=== PATIENT | female | born 1945 | race Caucasian/White ===

== ENCOUNTER → 2016-05-11 16:56 | Outpatient (CLI) | payer MEDICARE, OTHER ==
[2013-12-26 11:14] VITALS: BMI 47.7
[~2016-05-11 16:56] MED LIST: CALTRATE 600 M600 M1 PO; DYAZIDE 37.5/251 CAP PO; MULTIPLE VITAMI1 TA1 PO; NORVASC5 MG PO; OXYBUTYNIN CHLOR5 MG PO; PROAIR HFA8.5 GM INH; SYMBICORT 80-10.2 GM INH; VITAMIN B COMPL1 TAB PO
== END | disposition home or self-care (01) ==
LOC: D.MAMMO 14:15
DX: Z12.31 Encounter for screening mammogram for malignant neoplasm of breast (principal)

== ENCOUNTER 2016-05-17 18:50 | Emergency (ER) | payer MEDICARE, OTHER ==
[2013-12-26 11:14] VITALS: BMI 47.7
[2016-05-17 22:28] LABS: BASOPHILS 0.6 % (0.0-2.0); EOSINOPHILS 1.7 % (0-7); HEMATOCRIT 43.3 % (36.0-48.0); IMMATURE GRANULOCYTES 0.2 % (0-5); LYMPHOCYTES 30.3 % (15-50); MCH 27.3 pg (26.0-34.0); MCHC 32.3 g/dL (31.0-37.0); MCV 84.6 fL (80.0-100.0); MEAN PLATELET VOLUME 9.6 fL (7.4-10.4); MONOCYTES 6.9 % (2-11); NEUTROPHILS 60.3 % (40-80); PLATELET COUNT 326 10x3/uL (130-400); RBC 5.12 10x6/uL (4.00-5.40); RDW 14.6 % (11.5-14.5)
== END 2016-05-17 22:00 | disposition home or self-care (01) ==
LOC: D.ER 18:50
PROVIDERS: Family Medicine
DX: S16.1XXA Strain of muscle, fascia and tendon at neck level, initial encounter (principal); V49.40XA Driver injured in collision with unspecified motor vehicles in traffic accident, initial encounter; Y93.89 Activity, other specified; Y92.410 Unspecified street and highway as the place of occurrence of the external cause

== ENCOUNTER → 2016-05-31 14:01 | Outpatient (CLI) | payer MEDICARE, OTHER ==
[2013-12-26 11:14] VITALS: BMI 47.7
== END | disposition home or self-care (01) ==
LOC: D.RAD 13:30
DX: M54.2 Cervicalgia (principal)

== ENCOUNTER → 2018-06-01 19:00 | Outpatient (CLI) | payer MEDICARE, OTHER ==
[2013-12-26 11:14] VITALS: BMI 47.7
== END | disposition home or self-care (01) ==
LOC: D.MAMMO 13:30
PROVIDERS: ATTEND Family Medicine Adult Medicine
DX: Z12.31 Encounter for screening mammogram for malignant neoplasm of breast (principal)

== ENCOUNTER → 2018-09-12 09:21 | Outpatient (CLI) | payer MEDICARE, OTHER ==
[2013-12-26 11:14] VITALS: BMI 47.7
== END | disposition home or self-care (01) ==
LOC: D.NM 09:21
PROVIDERS: ATTEND Orthopaedic Surgery
DX: T84.092A Other mechanical complication of internal right knee prosthesis, initial encounter (principal)

== ENCOUNTER → 2018-11-21 16:15 | Outpatient (CLI) | payer MEDICARE, OTHER ==
[2013-12-26 11:14] VITALS: BMI 47.7
[2018-11-21 16:37] LABS: BASOPHILS 0.3 % (0-2); EOSINOPHILS 1.4 % (0-7); HEMATOCRIT 40.3 % (36.0-48.0); HEMOGLOBIN 13.4 g/dL (12-16); IMMATURE GRANULOCYTES 0.3 % (0-5); LYMPHOCYTES 19.5 % (15-50); MCH 27.1 pg (26.0-34.0); MCHC 33.3 g/dL (31.0-37.0); MCV 81.4 fL (80.0-100.0); MEAN PLATELET VOLUME 9.9 fL (7.4-10.4); MONOCYTES 8.9 % (2-11); NEUTROPHILS 69.6 % (40-80); PLATELET COUNT 336 10x3/uL (130-400); RBC 4.95 10x6/uL (4.00-5.40); RDW 16.1 % (11.5-14.5); WBC 14.9 10x3/uL (4.8-10.8)
[2018-11-21 17:56] LABS: ERYTHROCYTE SEDIMENTATION RATE 40 mm/hr (0-30)
== END | disposition home or self-care (01) ==
LOC: D.LABREF 16:15
PROVIDERS: ATTEND Clinical Nurse Specialist Family Health
DX: M25.561 Pain in right knee (principal)

== ENCOUNTER → 2018-11-26 10:29 | Outpatient (CLI) | payer MEDICARE, OTHER ==
[2013-12-26 11:14] VITALS: BMI 47.7
--- NOTE | ~2018-11-26 | HEMODYNAMI ---
PATIENT:LAURIE MORENO MEDICAL RECORD: [id number] : 49 [id number] ADMISSION DATE: 11/26/18 Generatedon:11/26/201811:22 Patient name: LAURIE MORENO Patient #: [id number] SSN: : 1945 Date of study: 11/26/2018 Page: Of Hemodynamic Procedure Report Patient Data Patient Demographics Procedure consent was obtained First Name: LAURIE Gender: Female Last Name: TIFFANIE : 1945 Middle Initial: E Age: 73 year(s) Patient #: [id number] Race: Unknown Additional ID: [id number] Contact details Address: [address] [place] [address] [place] [place] [facility] Zip code: [address] Past Medical History Allergies Allergen Reaction Date Comments Reported Other 11/26/2018 Codine,Latex,Premarin,sulfa,darvon,lisinopril,and allergy streptomycin Admission Admission Data Admission Date: 11/26/2018 Admission Time: 10:29 Procedure Procedure Types Cath Procedure Peripheral Cath Diagnostic Procedure Miscellaneous Aspiration/Injection (Joint) Procedure Description Procedure Date Procedure Date: 11/26/2018 Procedure Start Time: 11:01 Procedure Staff Name Function Alin Murry MD Performing Physician Nain Merino RT Monitor Trina Ann RN Nurse Tierra Moe RN Nurse Procedure Data Cath Procedure Fluoroscopy Diagnostic fluoroscopy Total fluoroscopy Time: 2.7 time: 2.7 min min Diagnostic fluoroscopy Total fluoroscopy dose: 35 dose: 35 mGy mGy Hemodynamics Rest Pre Cath Intra NCS Post Cath Procedure Log Time Note 10:52:12 Nain Merino RT (R) (CV) sent for patient. Start room use. 10:52:24 Patient received from Outpatients to IR Alert and oriented. Tansferred to table in Supine position. 10:52:26 Signed procedure consent form obtained from patient. 10:52:28 Correct patient and procedure confirmed by team. 10:52:29 Full Disclosure recording started 10:52:30 - 10:52:31 Pre-procedure instructions explained to patient. 10:52:31 Pre-op teaching completed and patient verbalized understanding. 10:53:20 Patient allergic to Other allergyCodine,Latex,Premarin,sulfa,darvon,lisinopril,and streptomycin 10:53:26 Is patient on blood thinner?No 10:53:35 Right Knee was prepped with betadine and draped in sterile fashion. 10:57:46 Physician arrived 10:57:47 --------ALL STOP TIME OUT------ 10:57:47 Final Timeout: patient, procedure, and site verified with staff and physician. All members of the team are in agreement. 10:58:01 Right knee site verified by team. 10:58:18 Sedation plan: Local Anesthetic Medication:Lidocaine 11:01:19 Procedure started. 11:01:26 Local anesthetic to Right Knee with Lidocaine 1% by Alin Murry MD.INITIAL ACCESS ONLY 11:01:28 SAFE-T PLUS MYELOGRAM TRAY opened to sterile field. 11:14:44 Procedure ended.(Physican Out) 11:18:32 Fluoroscopy time 02.70 minutes. 11:18:42 Fluoroscopy dose: 35 mGy 11:18:42 Flurop Dose total: 35 11:19:47 FLUID SENT TO LAB SITE STABLE AND BANDAIDE APPLIED PT SENT HOME Device Usage Item Name Manufacture Quantity Catalog Hospital Part Current Minimal Lot# / Number Charge Number Stock Stock Serial# Code SAFE-T CareFusion 1 [id number] PLUS MYELOGRAM TRAY Signature Audit Donnelly Stage Time Signature Unsigned Intra-Procedure 11/26/2018 Nain 11:22:23 AM Angelique RT (R) (CV) [facility] [address] [place] [address]
[~2018-11-26 10:29] MED LIST changes: +CATAPRES0.2 MG PO; +CHLORTHALIDONE25 MG PO; +CIPRO500 MG PO; +ELIQUIS2.5 MG PO; +FEXOFENADINE HC60 MG PO; +HYDRALAZINE HCL50 MG PO; +HYDROCODON-ACE1 EA10 PO; +MAALOX ADVANCE355 ML PO; +MERIBIN5 MG PO; +MIRALAX17 GM PO; +PROBIOTIC BLEN1 EACH PO; +SINGULAIR10 MG PO; +TYLENOL PM1 TAB
[2018-11-26 12:01] LABS: PROTEIN - BODY FLUID 3.8 G/DL
[2018-11-26 15:03] LABS: EOS BF 1 %; MACROPHAGES BF 43 %; NEUT - BF 12 %
== END | disposition home or self-care (01) ==
LOC: D.RAD 10:29
PROVIDERS: General Practice; ATTEND Clinical Nurse Specialist Family Health
DX: M25.561 Pain in right knee (principal)

== ENCOUNTER → 2018-11-27 18:16 | Outpatient (CLI) | payer MEDICARE, OTHER ==
[2013-12-26 11:14] VITALS: BMI 47.7
== END | disposition home or self-care (01) ==
LOC: D.LABREF 18:16
PROVIDERS: ATTEND Orthopaedic Surgery
DX: M25.561 Pain in right knee (principal)

== ENCOUNTER 2018-11-28 14:28 | Inpatient (IN) | payer MEDICARE, OTHER ==
[~2018-11-28] VITALS: Ht 157.5 cm; Wt 100.9 kg
[~2018-11-28 14:28] MED LIST changes: -CATAPRES0.2 MG PO; -CHLORTHALIDONE25 MG PO; -CIPRO500 MG PO; -ELIQUIS2.5 MG PO; -FEXOFENADINE HC60 MG PO; -HYDRALAZINE HCL50 MG PO; -HYDROCODON-ACE1 EA10 PO; -MAALOX ADVANCE355 ML PO; -MERIBIN5 MG PO; -MIRALAX17 GM PO; -PROBIOTIC BLEN1 EACH PO; -SINGULAIR10 MG PO; -TYLENOL PM1 TAB
[2018-12-18] MEDS ORDERED: CATAPRES0.2 MG PO (15:48)
[2018-12-18] MEDS ORDERED: SINGULAIR10 MG PO (15:49)
[2018-12-18] MEDS ORDERED: HYDRALAZINE HCL50 MG PO (15:49)
[2018-12-18] MEDS ORDERED: PROBIOTIC BLEN1 EACH PO (15:50)
[2018-12-18] MEDS ORDERED: MERIBIN5 MG PO (15:51)
[2018-12-18] MEDS ORDERED: MIRALAX17 GM PO (15:51)
[2018-12-19] MEDS ORDERED: CHLORTHALIDONE25 MG PO (10:43)
[2018-12-19] MEDS ORDERED: TYLENOL PM1 TAB (10:45)
[2018-12-19] MEDS ORDERED: FEXOFENADINE HC60 MG PO (10:45)
[2018-12-19] MEDS ORDERED: MAALOX ADVANCE355 ML PO (10:46)
[2018-12-19 12:05] LABS: BASOPHILS 0.6 % (0-2); EOSINOPHILS 3.1 % (0-7); HEMATOCRIT 41.7 % (36.0-48.0); HEMOGLOBIN 13.2 g/dL (12-16); IMMATURE GRANULOCYTES 0.3 % (0-5); LYMPHOCYTES 27.4 % (15-50); MCH 26.6 pg (26.0-34.0); MCHC 31.7 g/dL (31.0-37.0); MCV 83.9 fL (80.0-100.0); MEAN PLATELET VOLUME 9.5 fL (7.4-10.4); MONOCYTES 7.8 % (2-11); NEUTROPHILS 60.8 % (40-80); PLATELET COUNT 331 10x3/uL (130-400); RBC 4.97 10x6/uL (4.00-5.40); RDW 16.1 % (11.5-14.5); WBC 11.2 10x3/uL (4.8-10.8)
[2018-12-19 12:18] LABS: INR 0.92 (0.85-1.17); PROTIME 11.9 SECONDS (11.6-15.0)
[2018-12-19 12:26] LABS: ANION GAP 10.8 mmol/L (8-16); CALCIUM 9.9 mg/dL (8.5-10.1); CARBON DIOXIDE 31.9 mmol/L (21.0-32.0); CREATININE - SERUM 0.9 mg/dL (0.6-1.3); POTASSIUM - SERUM 3.7 mmol/L (3.5-5.1)
[2018-12-19 12:34] LABS: APPEARANCE HAZY (CLEAR); BILIRUBIN NEGATIVE (NEGATIVE); COLOR YELLOW (YELLOW); GLUCOSE NEGATIVE (NEGATIVE); KETONE NEGATIVE (NEGATIVE); NITRITE NEGATIVE (NEGATIVE); PROTEIN NEGATIVE (NEGATIVE); SPECIFIC GRAVITY 1.005 (1.005-1.020); UROBILINOGEN NORMAL (NORMAL)
[2018-12-19 12:35] LABS: BACTERIA MANY /hpf (NEGATIVE); MUCUS <1+ /lpf (NONE SEEN); WHITE CELLS - URINE 0-5 /hpf (NEGATIVE)
[2018-12-24] VITALS (7 sets, daily range): BP systolic 106–166; BP diastolic 44–63; Ht 157.5 cm; Wt 100.9 kg
[2018-12-24] MEDS ORDERED: CIPRO500 MG PO (08:22)
[2018-12-24 09:54] LABS: APPEARANCE HAZY (CLEAR); BILIRUBIN NEGATIVE (NEGATIVE); COLOR YELLOW (YELLOW); GLUCOSE NEGATIVE (NEGATIVE); KETONE NEGATIVE (NEGATIVE); NITRITE NEGATIVE (NEGATIVE); PROTEIN TRACE mg/dL (NEGATIVE); SPECIFIC GRAVITY 1.015 (1.005-1.020); UROBILINOGEN NORMAL (NORMAL)
[2018-12-24 09:56] LABS: BACTERIA NONE SEEN /hpf (NEGATIVE); EPITHELIAL CELLS 0-5 /hpf (0-5); RED CELLS - URINE 0-5 /hpf (0-5); WHITE CELLS - URINE 0-5 /hpf (NEGATIVE)
--- NOTE | 2018-12-24 12:39 | NUR ---
RIGHT LEG CLEANED WITH HIBICLEAANSE AND ALCOHOL CIRCUMFERENTIALLY PRIOR TO PREP WITH CHLORAPREP TRAFFIC KEPT TO MINIMUM
--- NOTE | 2018-12-24 15:28 | OP ---
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 PROCEDURE: Revision total knee arthroplasty. SURGEON: Saul Burr MD REVERSING MILL ROLLER: JESSICA Ontiveros INTRAOPERATIVE COMPLICATIONS: None. SUMMARY OF PATHOLOGIC FINDINGS: Upon entering the patient's capsule, the entire knee joint had hemosiderin-stained fluid along with substantial hemosiderin staining of the synovium with synovitis. At the time of removal, the tibial baseplate clearly had not bonded to the cement and was removed quite easily. The femoral component did not seem to have any cracks or breaks in the Oxinium layer; however, there was small degree of metalosis about the tibial baseplate. This was essentially all removed with very minimal bone loss. The augments were required as the primary component was in somewhat too much internal rotation so the posterior lateral side of the femur was augmented in cleaning up this malrotated cut. IMPLANTS USED: [place] Triathlon total stabilized revision total knee arthroplasty. OPERATIVE SUMMARY IN DETAIL: After obtaining the appropriate preoperative orthopedic surgery consent as well as anesthetic consultation, evaluation and clearance, the patient was brought to the operating room and placed on the operating table in supine position. After adequate general laryngeal mask airway was administered, the patient's right lower extremity was prepared with a tourniquet about the proximal aspect. The right lower extremity was then prepped and draped in routine sterile fashion. The leg was elevated and exsanguinated, tourniquet was inflated to 350 mmHg. Incision was based on the previously utilized incision, taken down to the level of the capsule for paramedian arthrotomy. At this point, the turbid fluid was seen cultured and sent for analysis and evaluation. Attention was first turned to removal of the polyethylene, which was done. This was followed by removal of the distal femur, which was done without any bone loss; however, there did appear to be good fixation and interdigitation. Attention was then turned to the tibia and the tibia essentially required very little effort to come out and when it did come out the entire cement block was retained on the tibial bone itself and none had adhered to the bottom of the tibial baseplate. Serial and sequential reaming of the tibia was followed by all cement removal. Cleanup cuts were made on the tibia and then the tibial trials were undertaken. The patient did require an offset of 4 mm set at 1 o'clock. This trial was put into place and left where the femur was broached. Serial and sequential reaming of the femur was then followed by the distal femoral cuts as well as the chamfer cuts again. There was an offset required to 12 with 150 mm stem. The trials were put into place and then several polyethylenes were tried until I felt that 16 was the most OPERATIVE REPORT [id number] LAURIE MORENO stable. Trials were removed. The knee was copiously irrigated in pulsatile lavage fashion. The bone ends were dried. Components were then assembled on the back table in keeping with the trials. Final components were cemented into place. After all excess cement had been removed, the polyethylene was put into place. The knee was then reduced, taken through range of motion and found to be stable in all planes. Wound was again irrigated and then filled with a gram of vancomycin and a gram of tobramycin. This was then followed by closure of the capsule. Arthrotomy done by both Johann Ontiveros APN and ARIC Hankins followed by #1 Vicryl, 2-0 Vicryl and skin maddi. Sterile dressings were applied. Tourniquet was deflated. The patient was awakened, taken to recovery room in stable condition. All final needle and sponge counts were correct. TRANSINT:[id number] Voice Confirmation ID: [id number] DOCUMENT ID: [id number] LENO ROMO, SAUL CRANE at 1528 CC: [id number] DICTATION DATE: 12/24/18 1228 HOTEL MAINTENANCE WORKER: 12/24/18 1243 ADM IN [facility] [address] [place] [address]
[2018-12-24 17:16] LABS: BASOPHILS 0.1 % (0-2); EOSINOPHILS 0 % (0-7); HEMATOCRIT 36.6 % (36.0-48.0); HEMOGLOBIN 11.6 g/dL (12-16); IMMATURE GRANULOCYTES 0.4 % (0-5); LYMPHOCYTES 4.1 % (15-50); MCH 26.7 pg (26.0-34.0); MCHC 31.7 g/dL (31.0-37.0); MCV 84.1 fL (80.0-100.0); MEAN PLATELET VOLUME 9.3 fL (7.4-10.4); MONOCYTES 3.3 % (2-11); NEUTROPHILS 92.1 % (40-80); RBC 4.35 10x6/uL (4.00-5.40); RDW 15.6 % (11.5-14.5)
[2018-12-24 17:51] LABS: PLATELET COUNT 233 10x3/uL (130-400)
[2018-12-24 17:57] LABS: ALBUMIN 2.8 g/dL (3.4-5.0); ANION GAP 10.6 mmol/L (8-16); BILIRUBIN - TOTAL 0.34 mg/dL (0.2-1.3); CALCIUM 7.8 mg/dL (8.5-10.1); CARBON DIOXIDE 30.6 mmol/L (21.0-32.0); POTASSIUM - SERUM 3.2 mmol/L (3.5-5.1); PROTEIN - SERUM 6.5 g/dL (6.4-8.2)
[2018-12-25 01:21] VITALS: BP 94/58
--- NOTE | 2018-12-25 03:37 | NUR ---
Patient is alert and orented able to voice needs and wants to staff. Daughter at bedside. O2 at 3l cvia n/c in place. IV to left hand intact and paten with ns at 100ml/hr. no redness noted at site. no c/o pain at IV site. C pap at night from home. Plex boot to right foot scd to left. Right knee with wyatt rap and dressing CDI . BED alarm on bed. meplex to heals. call light and water in reach, bed low. bed rails up x2 , checked often for needs and safety.
[2018-12-25 05:34] VITALS: BP 138/56
[2018-12-25 06:59] LABS: BASOPHILS 0.1 % (0-2); EOSINOPHILS 0.2 % (0-7); HEMATOCRIT 32.5 % (36.0-48.0); HEMOGLOBIN 10.1 g/dL (12-16); IMMATURE GRANULOCYTES 0.3 % (0-5); LYMPHOCYTES 10.9 % (15-50); MCH 25.8 pg (26.0-34.0); MCHC 31.1 g/dL (31.0-37.0); MCV 83.1 fL (80.0-100.0); MEAN PLATELET VOLUME 10.1 fL (7.4-10.4); MONOCYTES 12.3 % (2-11); NEUTROPHILS 76.2 % (40-80); PLATELET COUNT 263 10x3/uL (130-400); RBC 3.91 10x6/uL (4.00-5.40); RDW 15.4 % (11.5-14.5); WBC 12.3 10x3/uL (4.8-10.8)
--- NOTE | 2018-12-25 07:18 | NUR ---
PT IS RESTING IN BED WITH EYES OPEN. RESPIRATIONS ARE EVEN AND UNLABORED. PT REPORTS FEELING TO RLE. PEDAL PULSE IS PALP. PT IS AAO X 4. DRESSING TO RIGHT KNEE IS CDI. DAUGHTER AT BEDSIDE. PT REPORTS PAIN 4/10 DENIES NEEDS AT THIS TIME. PT DENIES PRESENCE OF /V. BED IS IN THE LOWEST POSITION. CALL LIGHT AND BEDSIDE TABEL ARE WITHIN REACH. BED ALARM IS ON AND WORKING. SIDE RAILS X 2. PT DENIES FURTHER NEEDS. WILL CONT TO MONITOR.
[2018-12-25 07:20] LABS: ALBUMIN 2.6 g/dL (3.4-5.0); BILIRUBIN - TOTAL 0.34 mg/dL (0.2-1.3); CALCIUM 7.6 mg/dL (8.5-10.1); CARBON DIOXIDE 29.7 mmol/L (21.0-32.0); POTASSIUM - SERUM 3.7 mmol/L (3.5-5.1); PROTEIN - SERUM 6.4 g/dL (6.4-8.2)
[2018-12-25 08:42] VITALS: BP 126/56
[2018-12-25 12:25] VITALS: BP 134/62
--- NOTE | 2018-12-25 16:02 | MORECARE ---
CASE MANAGEMENT DISCHARGE SUMMARY PATIENT: LAURIE MORENO UNIT: [id number] ADM DATE: 12/24/18 AGE: 73 : [birth year] SEX: F ROOM/BED: D.2212 AUTHOR: CHIKA DURAN PHYSICIAN: REFERRING PHYSICIAN: SAUL BURR MD DATE OF SERVICE: 12/25/18 Discharge Plan Patient Name: LAURIE MORENO [facility] [facility] 1945 Planned Disposition: Home or Self Care Anticipated Discharge Date: Discharge Date: Expected LOS: Initial Reviewer: [email or web address] Initial Review Date: 12/24/2018 Generated: 12/25/18 5:01 pm DCPIA - Discharge Planning Initial Assessment Updated by [email or web address]: Radha Merchant on 12/25/18 3:57 pm * Is the patient Alert and Oriented? Yes * How many steps to enter\exit or inside your home? * PCP BREEDING * Pharmacy [facility] * Preadmission Environment Home with Family * ADLs Independent * Equipment Bedside Commode Cane CPAP Rolling Walker * List name and contact numbers for known caregivers / representatives who currently or will assist patient after discharge: LEON TIFFANIE (SPOUSE) [phone] * Additional services required to return to the preadmission environment? Yes * Can the patient safely return to the preadmission environment? Yes * Has this patient been hospitalized within the prior 30 days at any hospital? No Patient Name: LAURIE MORENO Page [id number] at 1602 All edits/amendments must be made on the electronic document DICTATION DATE: 12/25/18 1601 METER CALIBRATOR: RANDALL 12/25/18 1601 RPT#: [id number] DC DATE: STATUS: ADM IN [facility] [address] [place] [address] END OF REPORT
--- NOTE | 2018-12-25 16:09 | MORECARE ---
CASE MANAGEMENT DISCHARGE SUMMARY PATIENT: LAURIE MORENO UNIT: [id number] ADM DATE: 12/24/18 AGE: 73 : 47 SEX: F ROOM/BED: D.2212 AUTHOR: RENEE,DOC PHYSICIAN: REFERRING PHYSICIAN: SAUL BURR MD DATE OF SERVICE: 12/25/18 Discharge Plan Patient Name: LAURIE MORENO Facility: [facility]:[place] : 1945 Planned Disposition: Home or Self Care Anticipated Discharge Date: Discharge Date: Expected LOS: Initial Reviewer: [email or web address] Initial Review Date: 12/24/2018 Generated: 12/25/18 5:09 pm Comments DCP- Discharge Planning Updated by [email or web address]: Radha Merchant on 12/25/18 3:[address] Patient Name: LAURIE MORENO Admission Status: Urgent Accout number: [id number] Admission Date: 12-24-2018 : 1945 Admission Diagnosis: Attending: SAUL BURR Current LOS: 1 Anticipated DC Date: Planned Disposition: Home or Self Care Primary Insurance: MEDICARE A & B Discharge Planning Comments: CM met with patient to complete initial dc planning assessment. CM educated patient on the CM role and verbal consent given by patient to complete assessment. Patient lives at home with her spouse where she is independent with her care. At discharge patient plans to return home and feels this is a safe discharge. 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 CM discussed availability of home health, rehab services, and medical equipment. She has a walker, cane, BSC, and CPAP ([place]ian home Patient) She would like to do her OP PT @ [facility] , I have set her appointment for MondayDec 31 @ 10:30 am I spoke with Papi. Patient denied known discharge needs at this time. CM will continue to follow and will assist as needed with dc plans/needs. Cooler Conveyor Loader: Radha Merchant DCPIA - Discharge Planning Initial Assessment Updated by [email or web address]: Radha Merchant on 12/25/18 3:57 pm * Is the patient Alert and Oriented? Yes * How many steps to enter\exit or inside your home? * PCP LAURIER * Pharmacy [facility] [address] * Preadmission Environment Home with Family * ADLs Independent * Equipment Bedside Commode Cane CPAP Rolling Walker * List name and contact numbers for known caregivers / representatives who currently or will assist patient after discharge: LEON MORENO (SPOUSE) [phone] * Additional services required to return to the preadmission environment? Yes * Can the patient safely return to the preadmission environment? Yes * Has this patient been hospitalized within the prior 30 days at any hospital? No External Providers External Provider: Theresa Hadley PT Next Contact Date: Service Request Date: Service Type: Resolution: Reviewer: Comments: Last DP export: 12/25/18 3:01 Patient Name: LAURIE MORENO Page [phone] at 1609 All edits/amendments must be made on the electronic document DICTATION DATE: 12/25/181608 MEAT PRESS OPERATOR: RANDALL 12/25/181608 RPT#: [id number] DC DATE: STATUS: ADM IN [facility] [address] [place] [address] END OF REPORT
[2018-12-25 16:58] VITALS: BP 104/50
[2018-12-25 21:26] VITALS: BP 116/51
[2018-12-26 02:26] VITALS: BP 140/57
--- NOTE | 2018-12-26 03:44 | NUR ---
PATIENT IS ALERT AND ORENTED ABLE TO VOICE NEEDS AND WANTS TO STAFF. FAMILY AT BEDSIDE. NO S/S OF DISTRESS. CALL LIGHT AND WATER IN REACH.
[2018-12-26 05:51] VITALS: BP 120/74
[2018-12-26 06:48] LABS: BASOPHILS 0.3 % (0-2); EOSINOPHILS 7.6 % (0-7); HEMATOCRIT 30.2 % (36.0-48.0); HEMOGLOBIN 9.4 g/dL (12-16); IMMATURE GRANULOCYTES 0.4 % (0-5); LYMPHOCYTES 17.2 % (15-50); MCH 25.7 pg (26.0-34.0); MCHC 31.1 g/dL (31.0-37.0); MCV 82.5 fL (80.0-100.0); MEAN PLATELET VOLUME 9.4 fL (7.4-10.4); MONOCYTES 11.7 % (2-11); NEUTROPHILS 62.8 % (40-80); RBC 3.66 10x6/uL (4.00-5.40); RDW 15.7 % (11.5-14.5); WBC 11.2 10x3/uL (4.8-10.8)
[2018-12-26 07:03] LABS: PLATELET COUNT 192 10x3/uL (130-400)
--- NOTE | 2018-12-26 07:30 | NUR ---
PT RESTING IN BED WITH HOME BIPAP IN PLACE. RESP EVEN AND UNLABORED. REPORTS PAIN 4/10 TO RIGHT KNEE AT THIS TIME. IV TO LEFT HAND WITH NS @ 100ML/HR INFUSING VIA PUMP. SITE WITHOUT REDNESS OR EDEMA. DRESSING C/D/I TO RIGHT KNEE. EXTREMITY WARM TO TOUCH, PPPX4. DENIES FURTHER NEEDS AT THIS TIME. CL WITHIN REACH. ENCOURAGED TO CALL WITH NEEDS. CONTINUE POC
[2018-12-26 07:36] LABS: ALBUMIN 2.6 g/dL (3.4-5.0); ANION GAP 14.1 mmol/L (8-16); BILIRUBIN - TOTAL 0.33 mg/dL (0.2-1.3); CALCIUM 7.2 mg/dL (8.5-10.1); CARBON DIOXIDE 25.3 mmol/L (21.0-32.0); CREATININE - SERUM 1.1 mg/dL (0.6-1.3); POTASSIUM - SERUM 3.4 mmol/L (3.5-5.1); PROTEIN - SERUM 5.7 g/dL (6.4-8.2)
[2018-12-26 08:45] VITALS: BP 152/64
[2018-12-26 12:16] VITALS: BP 154/59
[2018-12-26 16:44] VITALS: BP 153/68
[2018-12-26 19:00] VITALS: BP 185/68
--- NOTE | 2018-12-26 20:00 | NUR ---
ALERT RESTING IN BED, DENIES PAIN OR NEEDS AT THIS TIME, SEE SHIFT ASSESSMENT, CALL LIGHT IN REACH, CHAD WRAP DRESSING C/D/I FAMILY MEMBER AT BEDSIDE
[2018-12-27] VITALS: BP 178/68
[2018-12-27 05:00] VITALS: BP 164/56
[2018-12-27 06:53] LABS: BASOPHILS 0.7 % (0-2); EOSINOPHILS 6.1 % (0-7); HEMATOCRIT 32.6 % (36.0-48.0); IMMATURE GRANULOCYTES 0.7 % (0-5); LYMPHOCYTES 24.4 % (15-50); MCH 25.8 pg (26.0-34.0); MCHC 30.7 g/dL (31.0-37.0); MCV 84.2 fL (80.0-100.0); MEAN PLATELET VOLUME 9.5 fL (7.4-10.4); MONOCYTES 11.6 % (2-11); NEUTROPHILS 56.5 % (40-80); RBC 3.87 10x6/uL (4.00-5.40); RDW 16.1 % (11.5-14.5)
[2018-12-27 07:14] LABS: ALBUMIN 2.6 g/dL (3.4-5.0); ANION GAP 7.8 mmol/L (8-16); BILIRUBIN - TOTAL 0.52 mg/dL (0.2-1.3); CALCIUM 8.2 mg/dL (8.5-10.1); CARBON DIOXIDE 34.6 mmol/L (21.0-32.0); POTASSIUM - SERUM 3.4 mmol/L (3.5-5.1); PROTEIN - SERUM 6.7 g/dL (6.4-8.2)
[2018-12-27 07:28] LABS: PLATELET COUNT 304 10x3/uL (130-400)
--- NOTE | 2018-12-27 08:10 | NUR ---
PT RESTING IN BED WITH HOME CPAP IN PLACE. NO ACUTE DISTRESS NOTED. DENIES PAIN AT THIS TIME. IV TO LEFT HAND SALINE LOC'D. SITE WITHOUT REDNESS OR EDEMA. DRESSING C/D/I TO RIGHT KNEE. DENIES FURTHER NEEDS AT THIS TIME. CL WITHIN REACH. ENCOURAGED TO CALL WITH NEEDS. CONTINUE POC
[2018-12-27 08:56] VITALS: BP 155/68
--- NOTE | 2018-12-27 10:05 | MORECARE ---
CASE MANAGEMENT DISCHARGE SUMMARY PATIENT: LAURIE MORENO UNIT: [id number] ADM DATE: 12/24/18 AGE: 73 : 47 SEX: F ROOM/BED: D.2212 AUTHOR: CHIKA DURAN PHYSICIAN: REFERRING PHYSICIAN: SAUL BURR MD DATE OF SERVICE: 12/27/18 Discharge Plan Patient Name: LAURIE MORENO [facility]:[place] : 1945 Planned Disposition: Home or Self Care Anticipated Discharge Date: Discharge Date: Expected LOS: Initial Reviewer: [email or web address] Initial Review Date: 12/24/2018 Generated: 12/27/18 11:05 am Comments DCP- Discharge Planning Updated by [email or web address]: Radha Merchant on 12/27/18 9:[address] IMM SERVED AND EXPLAINED DCP- Discharge Planning Updated by [email or web address]: Radha Merchant on 12/25/18 3:[address] Patient Name: LAURIE MORENO Admission Status: Urgent Accout number: [id number] Admission Date: 12-24-2018 : 1945 Admission Diagnosis: Attending: SAUL BURR Current LOS: 1 Anticipated DC Date: Planned Disposition: Home or Self Care Primary Insurance: MEDICARE A & B Discharge Planning Comments: CM met with patient to complete initial dc planning assessment. CM educated patient on the CM role and verbal consent given by patient to complete assessment. Patient lives at home with her spouse where she is independent with her care. At discharge patient plans to return home and feels this is a safe discharge. Her spouse will be her stock driver home. CM discussed availability of home health, rehab services, and medical equipment. She has a walker, cane, BSC, and CPAP ([place] home Patient) She would like to do her OP PT @ [facility] , I have set her appointment for MondayDec 31 @ 10:30 am I spoke with Osiel. Patient denied known discharge needs at this time. CM will continue to follow and will assist as needed with dc plans/needs. Rag Cutting Machine Feeder: Radha Merchant DCPIA - Discharge Planning Initial Assessment Updated by [email or web address]: Radha Merchant on 12/25/18 3:57 pm * Is the patient Alert and Oriented? Yes * How many steps to enter\exit or inside your home? * PCP KEARNEY * [facility] * Preadmission Environment Home with Family * ADLs Independent * Equipment Bedside Commode Cane CPAP Rolling Walker * List name and contact numbers for known caregivers / representatives who currently or will assist patient after discharge: LEON MORENO (SPOUSE) [phone] * Additional services required to return to the preadmission environment? Yes * Can the patient safely return to the preadmission environment? Yes * Has this patient been hospitalized within the prior 30 days at any hospital? No Coverage Notice Reviewer: [email or web address] Sussy Merchant Notice Issued Date-Time: 12/25/2018 15:45 Notice Type: Patient Choice Letter Notice Delivered To: Patient Relationship to Patient: Claim Approver Name: Delivery Method: HAND - Hand Delivered Roxana Days: Prior Verbal Notification: Recipient Understood Notice: Yes Recipient Signature: Yes Med Rec Note Co-signed by Attending: Coverage Notice Comment: Reviewer: [email or web address] Merchant Notice Issued Date-Time: 12/27/2018 9:05 Notice Type: IM Discharge Notice Notice Delivered To: Patient Relationship to Patient: Claim Approver Name: Delivery Method: HAND - Hand Delivered Roxana Days: Prior Verbal Notification: Recipient Understood Notice: Yes Recipient Signature: Yes Med Rec Note Co-signed by Attending: Coverage Notice Comment: Last DP export: 12/25/18 3:09 Patient Name: LAURIE MORENO Page [phone] at 1005 All edits/amendments must be made on the electronic document DICTATION DATE: 12/27/18 1005 WIRE WEAVER: RANDALL 12/27/18 1005 RPT#: [id number] DC DATE: STATUS: ADM IN [facility] [address] [place] [address] END OF REPORT
--- NOTE | 2018-12-27 11:03 | MORECARE ---
CASE MANAGEMENT DISCHARGE SUMMARY PATIENT: LAURIE MORENO UNIT: [id number] ADM DATE: 12/24/18 AGE: 73 : 47 SEX: F ROOM/BED: D.2212 AUTHOR: RENEE,DOC PHYSICIAN: REFERRING PHYSICIAN: SAUL BURR MD DATE OF SERVICE: 12/27/18 Discharge Plan Patient Name: LAURIE MORENO Facility: [facility]:[place] : 1945 Planned Disposition: Home or Self Care Anticipated Discharge Date: Discharge Date: Expected LOS: Initial Reviewer: [email or web address] Initial Review Date: 12/24/2018 Generated: 12/27/18 12:03 pm Comments DCP- Discharge Planning Updated by [email or web address]: Radha Merchant on 12/27/18 10:[address] patient discharging home today, daughter at bedside to drive her home. Denies any needs at this time DCP- Discharge Planning Updated by [email or web address]: Radha Merchant on 12/27/18 9:[address] IMM SERVED AND EXPLAINED DCP- Discharge Planning Updated by [email or web address]: Radha Merchant on 12/25/18 3:[address] Patient Name: LAURIE MORENO Admission Status: Urgent Accout number: [id number] Admission Date: 12-24-2018 : 1945 Admission Diagnosis: Attending: SAUL BURR Current LOS: 1 Anticipated DC Date: Planned Disposition: Home or Self Care Primary Insurance: MEDICARE A & B Discharge Planning Comments: CM met with patient to complete initial dc planning assessment. CM educated patient on the CM role and verbal consent given by patient to complete assessment. Patient lives at home with her spouse where she is independent with her care. At discharge patient plans to return home and feels this is a safe discharge. Her spouse will be her diesel pile driver operator home. CM discussed availability of home health, rehab services, and medical equipment. She has a walker, cane, BSC, and CPAP ([place]ian home Patient) She would like to do her OP PT @ [facility] , I have set her appointment for MondayDec 31 @ 10:30 am I spoke with Osiel. Patient denied known discharge needs at this time. CM will continue to follow and will assist as needed with dc plans/needs. Ecommerce Merchandising Manager: Radha Merchant DCPIA - Discharge Planning Initial Assessment Updated by [email or web address]: Radha Merchant on 12/25/18 3:57 pm * Is the patient Alert and Oriented? Yes * How many steps to enter\exit or inside your home? * PCP [facility] * Pharmacy [facility] [address] * Preadmission Environment Home with Family * ADLs Independent * Equipment Bedside Commode Cane CPAP Rolling Walker * List name and contact numbers for known caregivers / representatives who currently or will assist patient after discharge: LEON TIFFANIE (SPOUSE) [phone] * Additional services required to return to the preadmission environment? Yes * Can the patient safely return to the preadmission environment? Yes * Has this patient been hospitalized within the prior 30 days at any hospital? No Coverage Notice Reviewer: [id number] Sussy Merchant Notice Issued Date-Time: 12/25/2018 15:45 Notice Type: Patient Choice Letter Notice Delivered To: Patient Relationship to Patient: Manager Material Name: Delivery Method: HAND - Hand Delivered Roxana Days: Prior Verbal Notification: Recipient Understood Notice: Yes Recipient Signature: Yes Med Rec Note Co-signed by Attending: Coverage Notice Comment: Reviewer: [email or web address] Sussy Merchant Notice Issued Date-Time: 12/27/2018 9:05 Notice Type: IM Discharge Notice Notice Delivered To: Patient Relationship to Patient: Manager Material Name: Delivery Method: HAND - Hand Delivered Roxana Days: Prior Verbal Notification: Recipient Understood Notice: Yes Recipient Signature: Yes Med Rec Note Co-signed by Attending: Coverage Notice Comment: Last DP export: 12/27/18 9:05 Patient Name: LAURIE MORENO Page 25388 at 1103 All edits/amendments must be made on the electronic document DICTATION DATE: 12/27/18 110 OUTPATIENT PSYCHIATRIST: RANDALL 12/27/18 110 RPT#: [id number] DC DATE: STATUS: ADM IN [facility] [address] [place] [address] END OF REPORT
[2018-12-27] MEDS ORDERED: ELIQUIS2.5 MG PO (11:31)
[2018-12-27] MEDS ORDERED: HYDROCODON-ACE1 EA10 PO (11:32)
--- NOTE | 2018-12-28 15:24 | MORECARE ---
CASE MANAGEMENT DISCHARGE SUMMARY PATIENT: LAURIE MORENO UNIT: [id number] ADM DATE: 12/24/18 AGE: 73 : [birth year] SEX: F ROOM/BED: D.2212 AUTHOR: CHIKA DURAN PHYSICIAN: REFERRING PHYSICIAN: SAUL BURR MD DATE OF SERVICE: 12/28/18 Discharge Plan Patient Name: LAURIE MORENO Facility: [facility]:[place] : 1945 Planned Disposition: Home or Self Care Anticipated Discharge Date: Discharge Date: 12/27/2018 Expected LOS: 0 Initial Reviewer: [email or web address] Initial Review Date: 12/24/2018 Generated: 12/28/18 4:23 pm Comments DCP- Discharge Planning Updated by [email or web address]: Radha Merchant on 12/27/18 10:[address] patient discharging home today, daughter at bedside to drive her home. Denies any needs at this time DCP- Discharge Planning Updated by [email or web address]: Radha Merchant on 12/27/18 9:[address] IMM SERVED AND EXPLAINED DCP- Discharge Planning Updated by [email or web address]: Radha Merchant on 12/25/18 3:[address] Patient Name: LAURIE MORENO Admission Status: Urgent Accout number: [id number] Admission Date: 12-24-2018 : 1945 Admission Diagnosis: Attending: SAUL BURR Current LOS: 1 Anticipated DC Date: Planned Disposition: Home or Self Care Primary Insurance: MEDICARE A & B Discharge Planning Comments: CM met with patient to complete initial dc planning assessment. CM educated patient on the CM role and verbal consent given by patient to complete assessment. Patient lives at home with her spouse where she is independent with her care. At discharge patient plans to return home and feels this is a safe discharge. 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 CM discussed availability of home health, rehab services, and medical equipment. She has a walker, cane, BSC, and CPAP ([place] home Patient) She would like to do her OP PT @ [facility] , I have set her appointment for MondayDec 31 @ 10:30 am I spoke with [facility]. Patient denied known discharge needs at this time. CM will continue to follow and will assist as needed with dc plans/needs. Lean Specialist: Radha Merchant DCPIA - Discharge Planning Initial Assessment Updated by [email or web address]: Radha Merchant on 12/25/18 3:57 pm * Is the patient Alert and Oriented? Yes * How many steps to enter\exit or inside your home? * PCP [place] * Pharmacy [facility] * Preadmission Environment Home with Family * ADLs Independent * Equipment Bedside Commode Cane CPAP Rolling Walker * List name and contact numbers for known caregivers / representatives who currently or will assist patient after discharge: LEON TIFFANIE (SPOUSE) [phone] * Additional services required to return to the preadmission environment? Yes * Can the patient safely return to the preadmission environment? Yes * Has this patient been hospitalized within the prior 30 days at any hospital? No Coverage Notice Reviewer: [id number] Sussy Merchant Notice Issued Date-Time: 12/25/2018 15:45 Notice Type: Patient Choice Letter Notice Delivered To: Patient Relationship to Patient: It Audit Manager Name: Delivery Method: HAND - Hand Delivered Roxana Days: Prior Verbal Notification: Recipient Understood Notice: Yes Recipient Signature: Yes Med Rec Note Co-signed by Attending: Coverage Notice Comment: Reviewer: [id number] Sussy Merchant Notice Issued Date-Time: 12/27/2018 9:05 Notice Type: IM Discharge Notice Notice Delivered To: Patient Relationship to Patient: It Audit Manager Name: Delivery Method: HAND - Hand Delivered Roxana Days: Prior Verbal Notification: Recipient Understood Notice: Yes Recipient Signature: Yes Med Rec Note Co-signed by Attending: Coverage Notice Comment: Last DP export: 12/27/18 10:03 Patient Name: LAURIE MORENO Page 14257 at 1524 All edits/amendments must be made on the electronic document DICTATION DATE: 12/28/181522 BEVERAGE SALES CONSULTANT: RANDALL 12/28/181522 RPT#: [id number] DC DATE:12/27/18 STATUS: DIS IN [facility] [address] [place] [address] END OF REPORT
== END 2018-12-27 13:04 | disposition home or self-care (01) | DRG 467 ==
LOC: D.MS 12-24 08:00 → D.SDCHOLD 12-24 08:00 → D.MS 12-24 13:20
PROVIDERS: Family Medicine; ADMIT Orthopaedic Surgery; ATTEND Orthopaedic Surgery
PROC: 0SRC0J9 Replacement of Right Knee Joint with Synthetic Substitute, Cemented, Open Approach (ICD-10-PCS; 2018-12-24)
PROC: 0SPC0JZ Removal of Synthetic Substitute from Right Knee Joint, Open Approach (ICD-10-PCS; principal; 2018-12-24 10:15)
DX: T84.84XA Pain due to internal orthopedic prosthetic devices, implants and grafts, initial encounter (principal); D62 Acute posthemorrhagic anemia; I10 Essential (primary) hypertension; J45.909 Unspecified asthma, uncomplicated; G47.33 Obstructive sleep apnea (adult) (pediatric); K59.09 Other constipation; J42 Unspecified chronic bronchitis

== ENCOUNTER 2019-10-07 20:46 | Inpatient (IN) | payer MEDICARE, OTHER ==
[~2019-10-07] VITALS: Ht 157.5 cm; Wt 100.0 kg
[~2019-10-07 20:46] MED LIST changes: +CATAPRES0.2 MG PO; +CHLORTHALIDONE25 MG PO; +CIPRO500 MG PO; +ELIQUIS2.5 MG PO; +FEXOFENADINE HC60 MG PO; +HYDRALAZINE HCL50 MG PO; +HYDROCODON-ACE1 EA10 PO; +MAALOX ADVANCE355 ML PO; +MERIBIN5 MG PO; +MIRALAX17 GM PO; +PROBIOTIC BLEN1 EACH PO; +SINGULAIR10 MG PO; +TYLENOL PM1 TAB
[2019-10-07] MEDS ORDERED: ULTRAM50 MG PO (20:56)
[2019-10-07] MEDS ORDERED: MERIBIN5 MG PO (20:57)
[2019-10-07] MEDS ORDERED: ASCORBIC ACID500 MG PO (20:58)
[2019-10-07 22:27] LABS: APTT 28.1 SECONDS (22.8-39.4); INR 0.94 (0.85-1.17); PROTIME 12.5 SECONDS (11.6-15.0)
[2019-10-07 22:29] LABS: ALBUMIN 3.5 g/dL (3.4-5.0); ANION GAP 10.1 mmol/L (8-16); BILIRUBIN - TOTAL 0.22 mg/dL (0.2-1.3); CALCIUM 8.6 mg/dL (8.5-10.1); CARBON DIOXIDE 29.8 mmol/L (21.0-32.0); CREATININE - SERUM 1.2 mg/dL (0.6-1.3); PROTEIN - SERUM 7.8 g/dL (6.4-8.2)
[2019-10-07 22:37] LABS: HEMOGLOBIN 12.4 g/dL (12-16); MCH 26.4 pg (26.0-34.0); MCV 85.3 fL (80.0-100.0); MEAN PLATELET VOLUME 9.3 fL (7.4-10.4); PLATELET COUNT 337 10x3/uL (130-400); POTASSIUM - SERUM 2.9 mmol/L (3.5-5.1); RBC 4.69 10x6/uL (4.00-5.40); RDW 16.1 % (11.5-14.5); WBC 21.2 10x3/uL (4.8-10.8)
[2019-10-07 23:10] LABS: LYMPHOCYTES 3 % (15-50); MONOCYTES 3 % (2-11); NEUTROPHILS 91 % (40-80); PLATELET ESTIMATE NORMAL
[2019-10-07 23:12] LABS: ROULEAUX 4+
[2019-10-08] VITALS (7 sets, daily range): BP systolic 103–180; BP diastolic 54–63; Ht 157.5 cm; Wt 100.0 kg
--- NOTE | 2019-10-08 00:55 | NUR ---
SPOKE WITH SURGERY ABOUT CRITICAL POTASSIUM. WAS INFORMED THAT SUCCS WAS USED DURING SURGERY AND CONTAINS POTASSIUM THAT SHOULD RAISE AND GIVE 10 MEQS WHEN GETTING TO THE FLOOR.
--- NOTE | 2019-10-08 01:50 | NUR ---
CALLED TO OBTAIN [employer] MANUFACTURING TECH. NONE AVAILABLE AT THIS TIME.
--- NOTE | 2019-10-08 02:00 | NUR ---
MEPILEX BORDERS APPLIED BILATERALLY, INCENTIVE SPIROMETER AT BEDSIDE, PLEXI PULSE TO THE LEFT FOOT, AND SCD TO THE RIGHT LEG. PERIPHERAL PULSES STRONG AND EQUAL. LEFT LOWER AND EXTREMETY WARM TO TOUCH. PATIENT MOVES ON COMMAND. CALL LIGHT CLOSE. DENIES FURTHER NEEDS AT THIS TIME. CPOC.
--- NOTE | 2019-10-08 04:10 | NUR ---
PATIENT REQUESTING PAIN MEDICINE FOR 5/10 PAIN. ADMINISTERED NORCO 10 PER ORDER. PATIENT TOLERATED WELL.
[2019-10-08 05:43] LABS: BASOPHILS 0.1 % (0-2); EOSINOPHILS 0.2 % (0-7); HEMATOCRIT 35.9 % (36.0-48.0); HEMOGLOBIN 11.4 g/dL (12-16); IMMATURE GRANULOCYTES 0.4 % (0-5); LYMPHOCYTES 10.1 % (15-50); MCHC 31.8 g/dL (31.0-37.0); MCV 84.9 fL (80.0-100.0); MEAN PLATELET VOLUME 9.3 fL (7.4-10.4); MONOCYTES 5.5 % (2-11); NEUTROPHILS 83.7 % (40-80); PLATELET COUNT 284 10x3/uL (130-400); RBC 4.23 10x6/uL (4.00-5.40); RDW 16.1 % (11.5-14.5); WBC 18.6 10x3/uL (4.8-10.8)
[2019-10-08 06:04] LABS: ANION GAP 10.7 mmol/L (8-16); CALCIUM 7.7 mg/dL (8.5-10.1); CARBON DIOXIDE 29.3 mmol/L (21.0-32.0); CREATININE - SERUM 1.1 mg/dL (0.6-1.3); MAGNESIUM - SERUM 1.6 mg/dL (1.8-2.4); PHOSPHOROUS 3.2 mg/dL (2.5-4.9)
--- NOTE | 2019-10-08 06:39 | NUR ---
PATIENT UNABLE TO URINATE. BLADDER SCAN SHOWED 710. IN AND OUT CATH. RECEIVED 900 YELLOW URINE USING STERILE TECHNIQUE.
--- NOTE | 2019-10-08 07:30 | NUR ---
REC'D IN BED AWAKE AND ALERT. RESP EVEN AND UNLABORED WITH NO DISTRESS NOTED. CAN EXAPRESS NEEDS AND WANTS. NO C/O NOTED OR VOICED. CAN EXPRESS NEEDS AND WANTS. HAVE PRENVA WOUND VAC IN USE. USE C-PAP AT HS. C/L IN REACH AT BEDSIDE.
--- NOTE | 2019-10-08 09:15 | OP ---
PATIENT NAME: LAURIE CASTANEDA MEDICAL RECORD: [id number] :[birth year] LOCATION:D.[facility] [id number] ADMISSION DATE:10/07/19 SURGEON: MELLISA GRACE DO DATE OF OPERATION: 10/07/2019 PROCEDURE PERFORMED: Left lower leg complicated large laceration I&D with closure. PREOPERATIVE DIAGNOSIS: Left lower leg laceration 20 cm in length. POSTOPERATIVE DIAGNOSIS: Left lower leg laceration 20 cm in length. INDICATIONS: Ms. Castaneda is a 74-year-old female who was horseback riding today and fell off a horse and sustained a 20-cm laceration to the posterior aspect of the left lower leg. She was brought to the ER by ambulance. She denied any numbness or tingling in the lower leg. Her EHL and FHL were intact. Sensation was intact distally as was her pulses in the dorsalis pedis and posterior tibialis. The left lower extremity, she did have a total knee on that side, which was somewhat concerning due to the size of the laceration and the location, it was just at the posterior aspect of the knee at the flexion point, but just distal to it. I saw her in the ER and called and they worked her in for I&D and closure. I informed her of the risks including infection, bleeding, damage to nerves or vessels in the area, need for further surgery, continued pain, nonhealing of the wound due to the location, blood clots, and even . She signed the consent. SURGEON: Mellisa Grace DO DESCRIPTION OF PROCEDURE: The patient was taken to the operating suite, sedated and intubated. She was given 2 grams Ancef in the ER. She was then rolled into the prone position. Once that was completed, the left lower extremity was draped off and then prepped with Betadine and then draped. A timeout was performed. Everyone was in agreement of the correct site, side, patient and procedure. I then began by inspecting the wound and there did not appear to be any laceration of the gastroc muscle. It did appear to be intact. The fascia over it was intact. I inspected the wound distally and proximally, there was no violation of the capsule, did not appear to be. However, there was what appeared to be joint fluid, but there was no large amount of it leaking out. I did not find a rent in the capsule of the posterior knee as it did not appear to violate the fascia of the gastroc either. The wound was then irrigated with 6 liters of normal saline and then I closed it with a 2-0 Vicryl in inverted interrupted fashion. It was 20 cm in length horizontally from medial to lateral and then stapled the skin. I then put a Prevena plus VAC on and held suction well. She was then moved over to her bed, put in supine position, awakened, and taken to recovery in stable condition. BLOOD LOSS: Minimal. COMPLICATIONS: None. TRANSINT:[id number] Voice Confirmation ID: [id number] DOCUMENT ID: [id number] OPERATIVE REPORT [id number] LAURIE CASTANEDA MICHAEL D, DO at 0915 CC: [id number] DICTATION DATE: 10/07/19 2332 SENIOR IT RECRUITER: 10/08/19 0358 ADM IN [facility] [address] [place] [address]
[2019-10-08] MEDS ORDERED: HYDROCODON-ACE1 EA10 PO (10:33)
[2019-10-08] MEDS ORDERED: KEFLEX500 MG PO (10:34)
--- NOTE | 2019-10-08 12:12 | NUR ---
I have reviewed this patient and I concur with the Shift Assessment completed by the Licensed Practical Nurse today this shift.
--- NOTE | 2019-10-08 16:34 | NUR ---
WAS MEDICATED WITH NORCO FOR C/O KNEE PAIN. HUBSBAND AND C/L IN REACH AT BEDSIDE.
--- NOTE | 2019-10-08 19:54 | NUR ---
INDWELLING CATH PLACED AT THIS TIME WITH 900 CC NOTED OUT. PT HAS BEEN UNABLE TO VOID FOR OVER 10 HRS ON TODAY. CALL WAS PLACED TO APPAREL SALES ASSOCIATE AWAITING GROUND.
[2019-10-09 04:00] VITALS: BP 166/67
--- NOTE | 2019-10-09 05:35 | NUR ---
I have reviewed this patient and I concur with the Shift Assessment completed by the Licensed Practical Nurse today this shift.
[2019-10-09 06:02] LABS: ANION GAP 10.2 mmol/L (8-16); CALCIUM 8.3 mg/dL (8.5-10.1); CARBON DIOXIDE 29.7 mmol/L (21.0-32.0); CREATININE - SERUM 0.9 mg/dL (0.6-1.3); MAGNESIUM - SERUM 1.6 mg/dL (1.8-2.4); PHOSPHOROUS 2.6 mg/dL (2.5-4.9)
[2019-10-09 06:07] LABS: POTASSIUM - SERUM 2.9 mmol/L (3.5-5.1)
[2019-10-09 06:35] LABS: BASOPHILS 0.3 % (0-2); EOSINOPHILS 1.5 % (0-7); HEMATOCRIT 36.3 % (36.0-48.0); HEMOGLOBIN 11.3 g/dL (12-16); IMMATURE GRANULOCYTES 0.3 % (0-5); LYMPHOCYTES 20.6 % (15-50); MCH 26.7 pg (26.0-34.0); MCHC 31.1 g/dL (31.0-37.0); MCV 85.6 fL (80.0-100.0); MEAN PLATELET VOLUME 9.3 fL (7.4-10.4); MONOCYTES 9.4 % (2-11); NEUTROPHILS 67.9 % (40-80); PLATELET COUNT 266 10x3/uL (130-400); RBC 4.24 10x6/uL (4.00-5.40); RDW 16.2 % (11.5-14.5); WBC 14.4 10x3/uL (4.8-10.8)
--- NOTE | 2019-10-09 07:35 | NUR ---
REC'D IN BED WITH NO DISTRESS NOTED. CAN EXPRESS NEEDS AND WANTS. NO C/O NOTED OR VOICED. ASSESSSMENT COMPLETED. C/L IN REACH AT BEDSIDE.
[2019-10-09 08:48] LABS: BILIRUBIN NEGATIVE (NEGATIVE); GLUCOSE NEGATIVE (NEGATIVE); KETONE NEGATIVE (NEGATIVE); NITRITE NEGATIVE (NEGATIVE); UROBILINOGEN NORMAL (NORMAL)
[2019-10-09 08:50] LABS: BACTERIA FEW /hpf (NEGATIVE); EPITHELIAL CELLS 0-5 /hpf (0-5); WHITE CELLS - URINE 0-5 /hpf (NEGATIVE)
[2019-10-09 09:01] VITALS: BP 181/62
[2019-10-09 13:36] VITALS: BP 196/81
--- NOTE | 2019-10-09 16:09 | MORECARE ---
CASE MANAGEMENT DISCHARGE SUMMARY PATIENT: LAURIE MORENO UNIT: [id number] ADM DATE: 10/07/19 AGE: 74 : [birth year] SEX: F ROOM/BED: D.2225 AUTHOR: RENEEDOC PHYSICIAN: REFERRING PHYSICIAN: SABINO GALLEGOS DO DATE OF SERVICE: 10/09/19 Discharge Plan Patient Name: LAURIE MORENO Facility: [facility]:[place] : 1945 Planned Disposition: Home Health Service Anticipated Discharge Date: Discharge Date: Expected LOS: Initial Reviewer: [id number] Initial Review Date: 10/07/2019 Generated: 10/09/19 5:08 pm Comments DCP- Discharge Planning Updated by [id number]: Cherry Veloz on 10/09/19 3:[address] Patient Name: LAURIE MORENO Admission Status: ER Accout number: [id number] Admission Date: 10-07-2019 : 1945 Admission Diagnosis:LACERATION WITHOUT FOREIGN BODY, LEFT KNEE, INIT ENCNTR Attending: SABINO GALLEGOS Current LOS: 2 Anticipated DC Date: Planned Disposition: Home Health Service Primary Insurance: MEDICARE A & B Discharge Planning Comments: CM met with patient at bedside after explaining CM role and obtaining verbal consent. CM discussed availability / needs of home health, REHAB and medical equipment. PATIENT WOULD LIKE . [facility] SIGNED FOR [facility]. [facility] CAN SEE MONDAY. IMM SIGNED. ANTICIPATES DC TO HOME TODAY. Transfer Iron Operator: Cherry Veloz DCPIA - Discharge Planning Initial Assessment Updated by [id number]: Cherry Veloz on 10/09/19 4:02 pm * Is the patient Alert and Oriented? Yes * PCP [place] * Pharmacy [facility] * Preadmission Environment Home with Family * ADLs Independent * Other Equipment WALKER,BSC , CPAP * Community resources currently utilized None * Additional services required to return to the preadmission environment? Yes * Can the patient safely return to the preadmission environment? Yes * Has this patient been hospitalized within the prior 30 days at any hospital? No External Providers [facility] [place] Next Contact Date: Service Request Date: Service Type: Resolution: Reviewer: Comments: Coverage Notice Reviewer: [id number] Sussy Veloz Notice Issued Date-Time: 10/09/2019 16:03 Notice Type: IM Discharge Notice Notice Delivered To: Patient Relationship to Patient: Campaign Management Senior Manager Name: Delivery Method: - Roxana Days: Prior Verbal Notification: Recipient Understood Notice: Recipient Signature: Med Rec Note Co-signed by Attending: Coverage Notice Comment: Reviewer: [id number] - Cherry Veloz Notice Issued Date-Time: 10/09/2019 16:03 Notice Type: Patient Choice Letter Notice Delivered To: Patient Relationship to Patient: Campaign Management Senior Manager Name: Delivery Method: - Roxana Days: Prior Verbal Notification: Recipient Understood Notice: Recipient Signature: Med Rec Note Co-signed by Attending: Coverage Notice Comment: MARIA G Patient Name: LAURIE MORENO Page 87737 at 1609 All edits/amendments must be made on the electronic document DICTATION DATE: 10/09/191607 ASSISTANT CORPORATION COUNSEL: RANDALL 10/09/198 RPT#: [id number] [place] DATE: STATUS: ADM IN [facility] [address] [place] [address] END OF REPORT
[2019-10-09 18:41] VITALS: BP 145/72
[2019-10-09 22:20] VITALS: BP 165/62
--- NOTE | 2019-10-10 03:54 | NUR ---
I have reviewed this patient and I concur with the Shift Assessment completed by the Licensed Practical Nurse today this shift.
[2019-10-10 05:41] LABS: HEMATOCRIT 36.9 % (36.0-48.0); HEMOGLOBIN 11.6 g/dL (12-16); LYMPHOCYTES 14.4 % (15-50); MCH 26.5 pg (26.0-34.0); MCHC 31.4 g/dL (31.0-37.0); MCV 84.4 fL (80.0-100.0); PLATELET COUNT 271 10x3/uL (130-400); RBC 4.37 10x6/uL (4.00-5.40); RDW 15.1 % (11.5-14.5); WBC 14.3 10x3/uL (4.8-10.8)
[2019-10-10 06:05] LABS: ANION GAP 9.1 mmol/L (8-16); CALCIUM 9.2 mg/dL (8.5-10.1); CARBON DIOXIDE 32.3 mmol/L (21.0-32.0); CREATININE - SERUM 0.8 mg/dL (0.6-1.3); MAGNESIUM - SERUM 1.6 mg/dL (1.8-2.4); POTASSIUM - SERUM 3.4 mmol/L (3.5-5.1)
--- NOTE | 2019-10-10 07:55 | NUR ---
REC'D IN BED AWAKE AND ALERT. RESP EVEN AND UNLABORED WITH NO DISTRESS NOTED. CAN EXRESS NEEDS AND WANTS. NO C/O NOTED OR VOICED, ASSESSMENT COMPLETED. C/L IN REACH AT BEDSIDE.
[2019-10-10 08:00] VITALS: BP 156/45
[2019-10-10 12:00] VITALS: BP 165/62
--- NOTE | 2019-10-10 12:00 | NUR ---
BREAUX DC AT THIS TIME WITH 700 ML NOTED TO COLLECTION BAG. C/L IN REACH AT BEDSIDE.
--- NOTE | 2019-10-10 13:58 | NUR ---
PATIENT IS WITHOUT DISTRESS. AT SIDE.
[2019-10-10 15:32] VITALS: BP 168/64
--- NOTE | 2019-10-10 17:19 | MORECARE ---
CASE MANAGEMENT DISCHARGE SUMMARY PATIENT: LAURIE MORENO UNIT: [id number] ADM DATE: 10/07/19 AGE: 74 : [birth year] SEX: F ROOM/BED: D.2225 AUTHOR: RENEE,DOC PHYSICIAN: REFERRING PHYSICIAN: SABINO GALLEGOS DO DATE OF SERVICE: 10/10/19 Discharge Plan Patient Name: LAURIE MORENO Facility: [facility]:[place] : 1945 Planned Disposition: Home Health Service Anticipated Discharge Date: Discharge Date: Expected LOS: Initial Reviewer: [email or web address] Initial Review Date: 10/07/2019 Generated: 10/10/19 6:18 pm Comments DCP- Discharge Planning Updated by [email or web address]: Cherry Veloz on 10/10/19 4:[address] Patient Name: LAURIE MORENO Admission Status: ER Accout number: [id number] Admission Date: 10-07-2019 : 1945 Admission Diagnosis:LACERATION WITHOUT FOREIGN BODY, LEFT KNEE, INIT ENCNTR Attending: SABINO GALLEGOS Current LOS: 3 Anticipated DC Date: Planned Disposition: Home Health Service Primary Insurance: MEDICARE A & B Discharge Planning Comments: PLAN HAS CHANGED. LOOKING AT THERAPY NOTES AND SPEAKING WITH PATIENT IT LOOKS LIKE SHE NEEDS [facility]. I SPOKE WITH PATIENT AND AND SHE WOULD LIKE TO GO TO [facility]. CONSULT PUT IN AND MJ NOTIFIED. ANTICIPATE DC TO [facility] TOMORROW. Land Appraiser: Cherry Veloz DCP- Discharge Planning Updated by [email or web address]: Cherry Roselia on 10/09/19 3:[address] Patient Name: LAURIE MORENO Admission Status: ER Accout number: [id number] Admission Date: 10-07-2019 : 1945 Admission Diagnosis:LACERATION WITHOUT FOREIGN BODY, LEFT KNEE, INIT ENCNTR Attending: SABINO GALLEGOS Current LOS: 2 Anticipated DC Date: Planned Disposition: Home Health Service Primary Insurance: MEDICARE A & B Discharge Planning Comments: CM met with patient at bedside after explaining CM role and obtaining verbal consent. CM discussed availability / needs of home health, REHAB and medical equipment. PATIENT WOULD LIKE . [facility] SIGNED FOR [facility]. [facility] CAN SEE MONDAY. IMM SIGNED. ANTICIPATES DC TO HOME TODAY. Land Appraiser: Cherry Veloz DCPIA - Discharge Planning Initial Assessment Updated by [email or web address]: Cherry Veloz on 10/09/19 4:02 pm * Is the patient Alert and Oriented? Yes * PCP [place] * Pharmacy [facility] * Preadmission Environment Home with Family * ADLs Independent * Other Equipment WALKER,BSC , CPAP * Community resources currently utilized None * Additional services required to return to the preadmission environment? Yes * Can the patient safely return to the preadmission environment? Yes * Has this patient been hospitalized within the prior 30 days at any hospital? No Coverage Notice Reviewer: [id number] Sussy Velzo Notice Issued Date-Time: 10/09/2019 16:03 Notice Type: IM Discharge Notice Notice Delivered To: Patient Relationship to Patient: Refuse Laborer Name: Delivery Method: - Roxana Days: Prior Verbal Notification: Recipient Understood Notice: Recipient Signature: Med Rec Note Co-signed by Attending: Coverage Notice Comment: Reviewer: [id number] Sussy Veloz Notice Issued Date-Time: 10/09/2019 16:03 Notice Type: Patient Choice Letter Notice Delivered To: Patient Relationship to Patient: Refuse Laborer Name: Delivery Method: - Roxana Days: Prior Verbal Notification: Recipient Understood Notice: Recipient Signature: Med Rec Note Co-signed by Attending: Coverage Notice Comment: MARIA G Last DP export: 10/09/19 3:09 p Patient Name: LAURIE MORENO Page [phone] at 1719 All edits/amendments must be made on the electronic document DICTATION DATE: 10/10/191718 SENIOR MAINFRAME PROGRAMMER ANALYST: RANDALL 10/10/191718 RPT#: [id number] DC DATE: STATUS: ADM IN [facility] [address] [place] [address] END OF REPORT
--- NOTE | 2019-10-10 18:35 | NUR ---
WAS INFORM BY PT/OT WHEN THEY ASSISTED PT UP TO [facility] THAT SHE HAS A BLISTER NOTED TO HER RIGHT BUTTOCK THAT IS INTACT AT THIS TIME. C/L IN REACH AT BEDSIDE.
--- NOTE | 2019-10-10 18:40 | NUR ---
THIS NURSE WAS GOING TO REPLACE BREAUX CATH BUT PT WANT TO WAIT AWHILE LONG TO SEE IF SHE COULD VOID ON HER OWN. NO C/O PAIN OR PRESSURE NOTED AT THIS TIME. INFORMED PT IF SHE STARTES TO HAVE PAIN OR PRESSURE LET THE ONCOMING NURSE KNOW. C/L REACH AT BEDSIDE.
[2019-10-10 20:00] VITALS: BP 162/66
[2019-10-11 04:00] VITALS: BP 181/68
[2019-10-11 04:46] LABS: BASOPHILS 0.1 % (0-2); EOSINOPHILS 0.4 % (0-7); HEMATOCRIT 36.2 % (36.0-48.0); HEMOGLOBIN 11.6 g/dL (12-16); IMMATURE GRANULOCYTES 0.4 % (0-5); MCH 26.7 pg (26.0-34.0); MCV 83.4 fL (80.0-100.0); MEAN PLATELET VOLUME 9.5 fL (7.4-10.4); MONOCYTES 8.4 % (2-11); NEUTROPHILS 78.7 % (40-80); RBC 4.34 10x6/uL (4.00-5.40); RDW 15.2 % (11.5-14.5); WBC 15.7 10x3/uL (4.8-10.8)
[2019-10-11 04:49] LABS: PLATELET COUNT 337 10x3/uL (130-400)
[2019-10-11 04:55] LABS: ANION GAP 7.6 mmol/L (8-16); CALCIUM 9.2 mg/dL (8.5-10.1); CREATININE - SERUM 0.8 mg/dL (0.6-1.3); MAGNESIUM - SERUM 1.6 mg/dL (1.8-2.4); PHOSPHOROUS 2.8 mg/dL (2.5-4.9); POTASSIUM - SERUM 3.6 mmol/L (3.5-5.1)
--- NOTE | 2019-10-11 05:40 | NUR ---
PT IV INFULTRATED. PT REQUEST TO NOT START ANOTHER IV DUE TO HER GOING TO REHAB TODAY. I TOLD PT IF LONG SHE IS DRINKING PLENTY OF FLUIDS AND IS PEEING WE WILL HOLD OFF ON STARTING IV. WILL FALLOW UP.
[2019-10-11 09:26] VITALS: BP 176/71
--- NOTE | 2019-10-11 09:56 | NUR ---
SHE IS ALERT, WEARING A PURE WICK. WOUND VAC TO THE LEFT LEG. BLISTER TO HER RIGHT BUTTOCKS, MEPILAX APPLIED TO IT. 2 LITERS OF 02 PER NC. THE CALL LIGHT IS WTIHIN REACH AND THE BED ALARM IS ON.
--- NOTE | 2019-10-11 12:47 | NUR ---
OT NOTE: PT COMPLETED SUPINE TO SIT WITH MOD A. PT COMPLETED SITTING AT EOB WITH SBA. PT COMPLETED SIT TO STAND WITH CGA/MIN A. PT EASILY FATIGUED. PT COMPLETED BUE AROM WITH FUNCTIONAL TASKS WITH NO C/O PAIN . PT STATED LEFT ANKLE WAS SORE BUT COMMON ISSUE. [phone] THANK YOU,KENDALL LEWIS
[2019-10-11 12:56] VITALS: BP 158/67
--- NOTE | 2019-10-11 14:24 | NUR ---
OT NOTE: PT SITTING UP IN CHAIR; AT BEDSIDE; PT REPORTS THAT SHES FEELING BETTER. REPORTS THAT SHE HAS BEEN UP TO BS COMMODE TODAY AND ALSO AMBULATED TO THE DOOR. REPORTS THAT SHE HOPES TO GET TO GO TO REHAB HER HAS SPINAL STENOSIS AND HE IS UNABLE TO PULL ON HER OR ASSIST HER WITH ACTIVITIES. EDUCATED ON REHAB AND ANSWERED QUESTIONS. ASKED PT IF SHE WANTED TO RETURN TO BED AND SHE STATED THAT SHE FELT GOOD SITTING UP IN CHAIR. CALL LIGHT IN REACH. SONNY SANCHEZ, OTR/L [phone]
--- NOTE | 2019-10-11 15:14 | NUR ---
Rehab Note- Acute Inpatient Rehab prescreen order received. The patient is a good inpatient rehab candidate. Spoke with GEETA Carey. Have spoken with the patient's nurse Sapna. Will continue to follow at this time and will accept when medically stable and ready for discharge from the acute hospital if in agreeance with [facility] Acute Inpatient Rehab. Thank you for this referral! Nette Garcia RN Clinical Liaison, [facility] Rehab
--- NOTE | 2019-10-11 15:31 | MORECARE ---
CASE MANAGEMENT DISCHARGE SUMMARY PATIENT: LAURIE MORENO UNIT: [id number] ADM DATE: 10/07/19 AGE: 74 : [birth year] SEX: F ROOM/BED: D.2225 AUTHOR: RENEE,DOC PHYSICIAN: REFERRING PHYSICIAN: SABINO GALLEGOS DO DATE OF SERVICE: 10/11/19 Discharge Plan Patient Name: LAURIE MORENO Facility: [facility]:[place] : 1945 Planned Disposition: Home Health Service Anticipated Discharge Date: Discharge Date: Expected LOS: Initial Reviewer: [id number] Initial Review Date: 10/07/2019 Generated: 10/11/19 4:30 pm Comments DCP- Discharge Planning Updated by [email or web address]: Cherry Veloz on 10/10/19 4:[address] Patient Name: LAURIE MORENO Admission Status: ER Accout number: [id number] Admission Date: 10-07-2019 : 1945 Admission Diagnosis:LACERATION WITHOUT FOREIGN BODY, LEFT KNEE, INIT ENCNTR Attending: SABINO GALLEGOS Current LOS: 3 Anticipated DC Date: Planned Disposition: Home Health Service Primary Insurance: MEDICARE A & B Discharge Planning Comments: PLAN HAS CHANGED. LOOKING AT THERAPY NOTES AND SPEAKING WITH PATIENT IT LOOKS LIKE SHE NEEDS [facility]. I SPOKE WITH PATIENT AND AND SHE WOULD LIKE TO GO TO [facility]. CONSULT PUT IN AND MJ NOTIFIED. ANTICIPATE DC TO [facility] TOMORROW. Supervisor Forming And Tempering: Cherry Veloz DCP- Discharge Planning Updated by [id number]: Cherry Roselia on 10/09/19 3:[address] Patient Name: LAURIE MORENO Admission Status: ER Accout number: [id number] Admission Date: 10-07-2019 : 1945 Admission Diagnosis:LACERATION WITHOUT FOREIGN BODY, LEFT KNEE, INIT ENCNTR Attending: SABINO GALLEGOS Current LOS: 2 Anticipated DC Date: Planned Disposition: Home Health Service Primary Insurance: MEDICARE A & B Discharge Planning Comments: CM met with patient at bedside after explaining CM role and obtaining verbal consent. CM discussed availability / needs of home health, REHAB and medical equipment. PATIENT WOULD LIKE . [facility] SIGNED FOR [facility]. [facility] CAN SEE MONDAY. IMM SIGNED. ANTICIPATES DC TO HOME TODAY. Supervisor Forming And Tempering: Cherry Veloz DCPIA - Discharge Planning Initial Assessment Updated by [id number]: Cherry Veloz on 10/09/19 4:02 pm * Is the patient Alert and Oriented? Yes * PCP [place] * Pharmacy [facility] * Preadmission Environment Home with Family * ADLs Independent * Other Equipment WALKER,BSC , CPAP * Community resources currently utilized None * Additional services required to return to the preadmission environment? Yes * Can the patient safely return to the preadmission environment? Yes * Has this patient been hospitalized within the prior 30 days at any hospital? No Coverage Notice Reviewer: [id number] Sussy Veloz Notice Issued Date-Time: 10/09/2019 16:03 Notice Type: IM Discharge Notice Notice Delivered To: Patient Relationship to Patient: Medical Physicist Name: Delivery Method: - Roxana Days: Prior Verbal Notification: Recipient Understood Notice: Recipient Signature: Med Rec Note Co-signed by Attending: Coverage Notice Comment: Reviewer: [id number] Sussy Veloz Notice Issued Date-Time: 10/09/2019 16:03 Notice Type: Patient Choice Letter Notice Delivered To: Patient Relationship to Patient: Medical Physicist Name: Delivery Method: - Roxana Days: Prior Verbal Notification: Recipient Understood Notice: Recipient Signature: Med Rec Note Co-signed by Attending: Coverage Notice Comment: MARIA G Last DP export: 10/10/19 4:19 p Patient Name: LAURIE MORENO Page 85520 at 1531 All edits/amendments must be made on the electronic document DICTATION DATE: 10/11/19 153 AMERICAN STUDIES PROFESSOR: RANDALL 10/11/19 1530 RPT#: [id number] DC DATE: STATUS: ADM IN [facility] [address] [place] [address] END OF REPORT
[2019-10-11 17:22] VITALS: BP 151/63
--- NOTE | 2019-10-11 19:51 | NUR ---
REPORT CALLED TO CONSTANTIN MAJOR. WILL TAKE PT TO REHAB IN WHEELCHAIR.
--- NOTE | 2019-10-11 20:28 | NUR ---
ESCORTED PT TO REHAB VIA WHEELCHAIR. POSITIONED IN BED FOR COMFORT.
--- NOTE | 2019-10-14 08:37 | MORECARE ---
CASE MANAGEMENT DISCHARGE SUMMARY PATIENT: LAURIE MORENO UNIT: [id number] ADM DATE: 10/07/19 AGE: 74 : [birth year] SEX: F ROOM/BED: D.2225 AUTHOR: RENEE,DOC PHYSICIAN: REFERRING PHYSICIAN: SABINO GALLEGOS DO DATE OF SERVICE: 10/14/19 Discharge Plan Patient Name: LAURIE MORENO Facility: [facility]:[place] : 1945 Planned Disposition: Home Health Service Anticipated Discharge Date: Discharge Date: 10/11/2019 Expected LOS: Initial Reviewer: [email or web address] Initial Review Date: 10/07/2019 Generated: 10/14/19 9:36 am Comments DCP- Discharge Planning Updated by [email or web address]: Cherry Veloz on 10/10/19 4:[address] Patient Name: LAURIE MORENO Admission Status: ER Accout number: [id number] Admission Date: 10-07-2019 : 1945 Admission Diagnosis:LACERATION WITHOUT FOREIGN BODY, LEFT KNEE, INIT ENCNTR Attending: SABINO GALLEGOS Current LOS: 3 Anticipated DC Date: Planned Disposition: Home Health Service Primary Insurance: MEDICARE A & B Discharge Planning Comments: PLAN HAS CHANGED. LOOKING AT THERAPY NOTES AND SPEAKING WITH PATIENT IT LOOKS LIKE SHE NEEDS [facility]. I SPOKE WITH PATIENT AND AND SHE WOULD LIKE TO GO TO [facility]. CONSULT PUT IN AND MJ NOTIFIED. ANTICIPATE DC TO [facility] TOMORROW. Curbing Stonecutter: Cherry Veloz DCP- Discharge Planning Updated by [email or web address]: Cherry Veloz on 10/09/19 3:[address] Patient Name: LAURIE MORENO Admission Status: ER Accout number: [id number] Admission Date: 10-07-2019 : 1945 Admission Diagnosis:LACERATION WITHOUT FOREIGN BODY, LEFT KNEE, INIT ENCNTR Attending: SABINO GALLEGOS Current LOS: 2 Anticipated DC Date: Planned Disposition: Home Health Service Primary Insurance: MEDICARE A & B Discharge Planning Comments: CM met with patient at bedside after explaining CM role and obtaining verbal consent. CM discussed availability / needs of home health, REHAB and medical equipment. PATIENT WOULD LIKE . MEENAKSHI SIGNED FOR [facility]. [facility] CAN SEE MONDAY. IMM SIGNED. ANTICIPATES DC TO HOME TODAY. Curbing Stonecutter: Cherry Veloz DCPIA - Discharge Planning Initial Assessment Updated by [email or web address]: Cherry Veloz on 10/09/19 4:02 pm * Is the patient Alert and Oriented? Yes * PCP ANCHORAGE * Pharmacy [facility] * Preadmission Environment Home with Family * ADLs Independent * Other Equipment WALKER,BSC , CPAP * Community resources currently utilized None * Additional services required to return to the preadmission environment? Yes * Can the patient safely return to the preadmission environment? Yes * Has this patient been hospitalized within the prior 30 days at any hospital? No Coverage Notice Reviewer: [email or web address] Sussy Veloz Notice Issued Date-Time: 10/09/2019 16:03 Notice Type: IM Discharge Notice Notice Delivered To: Patient Relationship to Patient: Certified Lactation Counselor Name: Delivery Method: - Roxana Days: Prior Verbal Notification: Recipient Understood Notice: Recipient Signature: Med Rec Note Co-signed by Attending: Coverage Notice Comment: Reviewer: [email or web address] Veloz Notice Issued Date-Time: 10/09/2019 16:03 Notice Type: Patient Choice Letter Notice Delivered To: Patient Relationship to Patient: Certified Lactation Counselor Name: Delivery Method: - Roxana Days: Prior Verbal Notification: Recipient Understood Notice: Recipient Signature: Med Rec Note Co-signed by Attending: Coverage Notice Comment: MARIA G Last DP export: 10/11/19 2:31 p Patient Name: LAURIE MORENO Page [id number] at 0837 All edits/amendments must be made on the electronic document DICTATION DATE: 10/14/19835 SHOP TECH: RANDALL 10/14/1934 RPT#: [id number] DC DATE:10/11/19 STATUS: DIS IN [facility] [address] [place] [address] END OF REPORT
== END 2019-10-11 20:29 | DRG 982 ==
LOC: D.ER 20:46 → D.MS 21:53
PROVIDERS: Family Medicine; Orthopaedic Surgery; ADMIT Family Medicine; ATTEND Family Medicine
PROC: 0YQ Anatomical Regions, Lower Extremities, Repair (ICD-10-PCS; principal; 2019-10-07 21:32)
DX: S81.012A Laceration without foreign body, left knee, initial encounter (principal); Z68.41 Body mass index [BMI] 40.0-44.9, adult; V80.010A Animal-rider injured by fall from or being thrown from horse in noncollision accident, initial encounter; E66.01 Morbid (severe) obesity due to excess calories; E05.90 Thyrotoxicosis, unspecified without thyrotoxic crisis or storm; J45.909 Unspecified asthma, uncomplicated; G47.33 Obstructive sleep apnea (adult) (pediatric); I10 Essential (primary) hypertension

== ENCOUNTER 2019-10-11 20:42 | Inpatient (IN) | payer MEDICARE, OTHER ==
[~2019-10-11] VITALS: Ht 157.5 cm; Wt 99.8 kg
--- NOTE | 2019-10-11 20:00 | NUR ---
ADMIT FOR PHYSICAL REHAB AND SERVICES OF DR WEBER. AWAKE AND ALERT. RESPIRATIONS UNLABORED. USES CPAP AT HS. WOUND VAC IN PLACE TO LEFT LEG. ORIENTED TO USE OF CALL LIGHT. NO ACUTE DISTRESS NOTED.
[~2019-10-11 20:42] MED LIST changes: +ASCORBIC ACID500 MG PO; +KEFLEX500 MG PO; +ULTRAM50 MG PO
[2019-10-11 23:03] VITALS: BP 155/71; BMI 40.3
--- NOTE | 2019-10-12 02:03 | NUR ---
SLEEPING WITH RESPRIATIONS UNLABORED. NO DISTRESS NOTED.
--- NOTE | 2019-10-12 05:53 | NUR ---
UP TO BATHROOM, WITH ONE PERSON ASSIST USING WALKER AND BACK TO BED. HAD LARGE LOOSE BM. BACK TO BED , WOUND VAC IN PLACE. NO ACUTE DISTRESS NOTED.
[2019-10-12 07:11] LABS: BASOPHILS 0.4 % (0-2); EOSINOPHILS 3.2 % (0-7); HEMATOCRIT 34.7 % (36.0-48.0); IMMATURE GRANULOCYTES 0.5 % (0-5); LYMPHOCYTES 15.8 % (15-50); MCH 26.4 pg (26.0-34.0); MCHC 31.7 g/dL (31.0-37.0); MCV 83.2 fL (80.0-100.0); MEAN PLATELET VOLUME 9.2 fL (7.4-10.4); MONOCYTES 12.5 % (2-11); NEUTROPHILS 67.6 % (40-80); PLATELET COUNT 352 10x3/uL (130-400); RBC 4.17 10x6/uL (4.00-5.40); RDW 15.5 % (11.5-14.5)
[2019-10-12 07:16] LABS: WBC 11.3 10x3/uL (4.8-10.8)
[2019-10-12 07:25] LABS: ANION GAP 8.9 mmol/L (8-16); CARBON DIOXIDE 32.4 mmol/L (21.0-32.0); POTASSIUM - SERUM 3.3 mmol/L (3.5-5.1)
[2019-10-12 10:18] VITALS: Ht 157.5 cm; Wt 99.8 kg
--- NOTE | 2019-10-12 10:34 | NUR ---
PT RESTING IN BED WITH EYES OPEN CALL LIGHT IN REACH NO PROBLEMS WILL MONITER
[2019-10-12 14:35] VITALS: BP 134/61
--- NOTE | 2019-10-12 17:21 | NUR ---
PT RESTING IN BED WITH EYES OPEN CALL LIGHT IN REACH WILL MONITER
[2019-10-12 20:00] VITALS: BP 153/62
--- NOTE | 2019-10-13 02:08 | NUR ---
SLEEPING WITH NO DISTRESS NOTED.
--- NOTE | 2019-10-13 05:02 | NUR ---
QUIET HOURS. NO ACUTE CHANGES IN CONDITION THIS SHIFT. RESTING IN BED WITH NO DISTRESS NOTED. WOUND VAC IN PLACE TO LEFT LEG.
--- NOTE | 2019-10-13 08:00 | NUR ---
PT RESTING IN BED WITH EYES OPEN CALL LIGHT IN REACH WILL MONITER
--- NOTE | 2019-10-13 18:05 | NUR ---
PT RESTOMG OM BED WOTJ DOROTHEA P[EM CA;; ;OGJT OM REACJ MP [RPB;E,S WO;; ,PMOTER
[2019-10-13 20:00] VITALS: BP 151/53
--- NOTE | 2019-10-13 22:27 | NUR ---
AWAKE AND ALERT. RESTING IN BED WITH RESPIRATIONS UNLABORED. WOUND VAC INTACT TO LEFT LEG. WOUND BELOW WOUND VAC COVERED WITH CLEAR BANDAGE BUT IS POOLING AND WEEPING SEROUS DRAINAGE. WILL CONTINUE TO MONITOR. CALL LIGHT IN REACH.
--- NOTE | 2019-10-14 03:24 | NUR ---
SLEEPING WITH RESPIRAITONS UNLABORED. NO DISTRESS NOTED.
[2019-10-14 07:06] LABS: BASOPHILS 0.5 % (0-2); EOSINOPHILS 5.6 % (0-7); HEMATOCRIT 35.8 % (36.0-48.0); HEMOGLOBIN 11.5 g/dL (12-16); IMMATURE GRANULOCYTES 0.8 % (0-5); LYMPHOCYTES 28.1 % (15-50); MCH 26.6 pg (26.0-34.0); MCHC 32.1 g/dL (31.0-37.0); MCV 82.9 fL (80.0-100.0); MEAN PLATELET VOLUME 8.7 fL (7.4-10.4); MONOCYTES 9.8 % (2-11); NEUTROPHILS 55.2 % (40-80); PLATELET COUNT 416 10x3/uL (130-400); RBC 4.32 10x6/uL (4.00-5.40); RDW 15.1 % (11.5-14.5); WBC 13.3 10x3/uL (4.8-10.8)
[2019-10-14 07:23] LABS: ANION GAP 14.3 mmol/L (8-16); CALCIUM 9.5 mg/dL (8.5-10.1); CARBON DIOXIDE 32.8 mmol/L (21.0-32.0); POTASSIUM - SERUM 3.1 mmol/L (3.5-5.1)
--- NOTE | 2019-10-14 08:00 | NUR ---
SITTING UP IN BED EATING BREAKFAST, DENIES ANY NEEDS AT THIS TIME, C/L AND FLUIDS IN REACH.
[2019-10-14 08:37] VITALS: BP 150/56
--- NOTE | 2019-10-14 09:06 | NUR ---
REINFORCED DRESSING TO LEFT LE WOUND AND BLISTER BY PLACING AN OPSITE TO COVER BLISTER.
--- NOTE | 2019-10-14 09:38 | NUR ---
PATIENT ADMITTED TO REHAB FROM THE ACUTE FLOOR. HER PCP IS DR. IZAGUIRRE. DME AT HOME IS A WALKER, BEDSIDE COMMODE AND A C-PAP. DISCHARGE PLANS ARE FOR PATIENT TO RETURN HOME. WILL CONTINUE TO FOLLOW WITH PATIENT.
--- NOTE | 2019-10-14 12:02 | NUR ---
SITTING UP IN BED WATCHING TV, DENIES ANY NEEDS AT THIS TIME, C/L AND FLUIDS IN REACH.
--- NOTE | 2019-10-14 12:54 | NUR ---
I have reviewed this patient and I concur with the Shift Assessment completed by the Licensed Practical Nurse today this shift.
--- NOTE | 2019-10-14 16:14 | NUR ---
SITTING UP IN BED WATCHING TV, DENIES ANY NEEDS AT THIS TIME, C/L AND FLUIDS IN REACH.
--- NOTE | 2019-10-14 19:37 | NUR ---
RECEIVED PT SITTING UP IN BED. ALERT AND ORIENTED X4. DENIES ANY NEEDS OR PAIN. NO SIGNS OF ACUTE DISTRESS NOTED. LEFT KNEE WOUND VAC INTACT. SHIFT ASSESSMENT COMPLETE. CALL LIGHT WITHIN REACH. FALL PRECAUTIONS IN PLACE. CPOC
[2019-10-14 20:04] VITALS: BP 117/54
--- NOTE | 2019-10-14 23:50 | NUR ---
ASSISTED PT TO RESTROOM AND BACK TO BED WITH SBA. REQUESTS TYLENOL PM. WILL ADMININSTER PER ORDER. CALL LIGHT WITHIN REACH. FALL PRECAUTIONS IN PLACE. CPOC
--- NOTE | 2019-10-15 02:11 | NUR ---
PT LYING IN BED ON LEFT SIDE EYES CLOSED RESTING. RR EVEN AND UNLABORED. CALL LIGHT WITHIN REACH. CPOC
--- NOTE | 2019-10-15 05:26 | NUR ---
PT LYING IN BED ON RIGHT SIDE EYES CLOSED RESTING. NO ACUTE CHANGES IN CONDITION NOTED THIS SHIFT. CALL LIGHT WITHIN REACH. FALL PRECAUTIONS IN PLACE. CPOC
[2019-10-15 08:00] VITALS: BP 137/46
--- NOTE | 2019-10-15 08:13 | NUR ---
SITTING UP IN BED EATING BREAKFAST, DENIES ANY NEEDS AT THIS TIME, C/L AND FLUIDS IN REACH.
--- NOTE | 2019-10-15 12:26 | NUR ---
SITTING UP IN BED EATING LUNCH, DENIES ANY NEEDS AT THIS TIME, C/L AND FLUIDS IN REACH.
--- NOTE | 2019-10-15 16:00 | NUR ---
SITTING UP IN BED WATCHING TV, DENIES ANY NEEDS AT THIS TIME, C/L AND FLUIDS IN REACH.
[2019-10-15 19:26] VITALS: BP 157/65
--- NOTE | 2019-10-15 20:09 | NUR ---
PT ASLEEP, AROUSES EASILY TO VOICE, RESPIRATIONS EVEN/UNLABORED, NO IMMEDIATE NEEDS NOTED, FALL PRECAUTIONS IN PLACE, FLUIDS/CALL LIGHT WITHIN REACH
--- NOTE | 2019-10-15 22:00 | NUR ---
REMOVED WOUND VAC PER ORDER, CLEANED AND DRSG APPLIED, DRSG IS C/D/I
[2019-10-16 07:17] LABS: BASOPHILS 0.5 % (0-2); EOSINOPHILS 3.8 % (0-7); HEMATOCRIT 30.6 % (36.0-48.0); HEMOGLOBIN 9.8 g/dL (12-16); IMMATURE GRANULOCYTES 0.8 % (0-5); LYMPHOCYTES 17.8 % (15-50); MCH 26.1 pg (26.0-34.0); MCV 81.6 fL (80.0-100.0); MEAN PLATELET VOLUME 8.3 fL (7.4-10.4); MONOCYTES 7.6 % (2-11); NEUTROPHILS 69.5 % (40-80); PLATELET COUNT 383 10x3/uL (130-400); RBC 3.75 10x6/uL (4.00-5.40); RDW 15.2 % (11.5-14.5); WBC 13.8 10x3/uL (4.8-10.8)
[2019-10-16 07:43] LABS: ANION GAP 9.9 mmol/L (8-16); CALCIUM 8.4 mg/dL (8.5-10.1); CARBON DIOXIDE 30.9 mmol/L (21.0-32.0); CREATININE - SERUM 0.9 mg/dL (0.6-1.3)
[2019-10-16 08:01] LABS: POTASSIUM - SERUM 2.8 mmol/L (3.5-5.1)
--- NOTE | 2019-10-16 08:03 | NUR ---
SITTING UP IN BED EATING BREAKFAST, DENIES ANY NEEDS AT THIS TIME, C/L AND FLUIDS IN REACH.
[2019-10-16 08:27] VITALS: BP 121/40
--- NOTE | 2019-10-16 12:00 | NUR ---
SITTING UP IN W/C VISITING WITH FAMILY, DENIES ANY NEEDS AT THIS TIME, C/L AND FLUIDS IN REACH.
--- NOTE | 2019-10-16 12:50 | RHP ---
PATIENT: LAURIE MORENO MEDICAL RECORD: [id number] ACCOUNT: [id number] LOCATION:[facility]1117 : [birth year] ADMISSION DATE: 10/11/19 REHABILITATION HISTORY AND PHYSICAL EXAMINATION POST ADMISSION PHYSICIAN EXAMINATION ADMITTING DIAGNOSIS: Debility. HISTORY OF PRESENT ILLNESS: The patient is a 74-year-old female patient who is morbidly obese, is followed with Dr. Khan who apparently presented to the ED after a fall after riding a horse with a large laceration to the posterior left knee and abrasion to her head. She denied any loss of consciousness. Orthopedic consult was seen and patient had emergent I&D with closure of a laceration on 10/06. She was admitted to the medical floor for further evaluation, monitoring, and treatment. She currently has a wound VAC to her left surgical area, supplemental O2. She has got leukocytosis. She has had a temperature at times. She needs to be monitored closely. She has got a wound VAC at this time. She also is requiring some supplemental O2. The patient has had some bowel and bladder incontinence during her stay, has some leukocytosis. She has got proximal muscle weakness, balance deficits, decreased activity tolerance, impaired mobility, decreased range of motion. She fatigues easily, got inability to care for herself. These are all barriers for discharge home at this time. COMORBIDITIES: Include weakness, laceration of her lower leg, morbid obesity, obstructive sleep apnea, hypertension and fall from horse. PAST MEDICAL HISTORY: Significant for cataracts, allergies, asthma, need for CPAP and BiPAP at home. She has got overactive bladder, incontinence, constipation, arthritis. PAST SURGICAL HISTORY: Includes joint replacement, hysterectomy, gallbladder and knee. ALLERGIES: SULFA, CODEINE, LATEX, LISINOPRIL, DARVON, PREMARIN, AND STREPTOMYCIN. CURRENT MEDICATIONS: Include Floranex daily, she is on Calmoseptine, she is on Dyazide 1 tab daily, polyethylene glycol 17 grams in 8 ounces of water daily, multivitamin daily, Singulair 10 mg daily, Idania 60 mg daily, chlorthalidone 25 mg daily, Norvasc 10 mg daily, Keflex 500 mg every 6 hours, tramadol 50 mg every 8 hours p.r.n., Otisco 10/325 one tab every 6 hours p.r.n., Apresoline 50 mg b.i.d., Catapres 0.25 mg b.i.d., Caltrate 600 mg b.i.d., vitamin C 500 mg b.i.d. and Tylenol PM as needed. HABITS: No alcohol or tobacco use. FAMILY HISTORY: Noncontributory. SOCIAL HISTORY: The patient hopes to return back home and get back to her prior level of functioning. REVIEW OF SYSTEMS: GENERAL: Does complain of some weakness and fatigue. HEENT: Denies cold, cough, or congestion. HISTORY AND PHYSICAL [id number] LAURIE MORENO CARDIOVASCULAR: Denies any chest pain. PHYSICAL EXAMINATION: VITAL SIGNS: Stable, afebrile. GENERAL: A morbidly obese female, in no acute distress upon exam. HEENT: Normocephalic and atraumatic. Mucosa moist. NECK: Supple. No lymphadenopathy. LUNGS: Clear at this time with no wheezing, rhonchi or rales. HEART: Regular rate and rhythm. No murmurs, rubs, or gallops. ABDOMEN: Soft, benign and nondistended. Positive bowel sounds x4. EXTREMITIES: She does have a wound VAC in place. NEUROLOGIC: She does have noted proximal muscle weakness. LABORATORY DATA: White count 11.3, H&H of 11 and 35 and platelet count is 352. Sodium 130, potassium 3.3, BUN and creatinine of 26 and 1.0 and blood sugar is noted to be 113. ASSESSMENT: This is a 74-year-old female patient admitted to the rehab with a working diagnosis of debility after a fall from the horse and laceration repair of wound VAC. The patient has potential to make improvement. We instituted the following multidisciplinary therapies including not limited to physical, occupational, respiratory, speech, nutritional services, prosthetics and orthotics. Given her complex medical condition and risks for more complications, rehabilitation services cannot be provided at a low level of care such as penitentiary facility. PLAN: 1. Admit to [facility] for inpatient therapy to include the following disciplines: A. Physical therapy to improve gait, all transfer skills and bed mobility to a modified independent level. B. Occupational therapy to improve activities of daily living. C. Case management to help with discharge planning and placement options. D. Nutrition to assist with nutritional needs. E. Rehabilitation nursing to assist in monitoring the patient's underlying medical conditions and to assist with any type of bowel or bladder management. 2. The patient's current medication and medical care will be continued. 3. The patient will be placed on standard fall precautions. 4. The patient's estimated length of stay is approximately 7-10 days. 5. We will discuss the patient during care team staff meeting this week and I will see again probably in the a.m. on Monday. TRANSINT:[id number] Voice Confirmation ID: [id number] DOCUMENT ID: [id number] ANA notes whether there has been none or any medical/functional change since admission: - No change since prescreen. ANA attests patient continues to be appropriate for IRF: - Continues to be appropriate. HISTORY AND PHYSICAL [id number] LAURIE MORENO,ISATU BRANDT MD at 1250 CC: [id number] DICTATION DATE: 10/12/19 1102 FOUNDRY PROCESS ENGINEER: 10/12/19 1359 ADM IN [place] [id number] [place] [id number]
--- NOTE | 2019-10-16 16:10 | NUR ---
UP IN W/C WITH THERAPY, DENIES ANY NEEDS AT THIS TIME.
[2019-10-16 19:06] VITALS: BP 125/46
--- NOTE | 2019-10-16 19:33 | NUR ---
IN BED ON PHONE NO NEEDS NOTED, RESPIRATIONS EVEN/UNLABORED, FALL PRECAUTIONS IN PLACE, FLUIDS/CALL LIGHT WITHIN REACH
--- NOTE | 2019-10-17 00:19 | NUR ---
PT ASLEEP,AROUSES EASILY TO VOICE, RESPIRATIONS SLOW AND EASY, NO IMMEDIATE NEEDS NOTED, FALL PRECAUTIONS IN PLACE, FLUIDS/CALL LIGHT WITHIN REACH
[2019-10-17 08:00] VITALS: BP 132/48
--- NOTE | 2019-10-17 08:15 | NUR ---
AWAKE, LAYING IN BED. DENIES INCREASED PAIN TO LEFT CALF. CHAD WRAP AROUND LEFT KNEE AND CALF. SHE IS ANXIOUS TO DC HOME.
[2019-10-17 08:55] LABS: ANION GAP 11.3 mmol/L (8-16); CALCIUM 9.3 mg/dL (8.5-10.1); CARBON DIOXIDE 29.9 mmol/L (21.0-32.0); CREATININE - SERUM 1.1 mg/dL (0.6-1.3); POTASSIUM - SERUM 3.2 mmol/L (3.5-5.1)
--- NOTE | 2019-10-17 10:45 | NUR ---
SITTING UP IN BED. IS ALERT AND ORIENTED. DSG TO LLE CALF IN PLACE. IS ANXIOUS TO DC HOME. POTISSIUM HAS RAISED UP THIS MORNING
[2019-10-17] MEDS ORDERED: K-DUR20 MEQ PO (13:28)
--- NOTE | 2019-10-17 13:49 | NUR ---
NUTRITION FOLLOW UP: COMMENTS: Patient has been eating well for the past 9 meals. Patient has not experienced any weight changes within the past week. Potassium level is improving. DIET: Regluar Diet PO INTAKE: 97% avg for last 9 meals WEIGHT: 220 lbs on 10/07, 220 lbs on 10/11 BM: x 1 on 10/15 SIG LABS: Na-131(L), Potassium-3.2(L), Cl-93(L) SIG MEDS: KCl, Os-Christophe, Miralax, Vit C RECOMMENDATIONS: -Continue current diet as tolerated RD to continue to follow and monitor patient DHS
--- NOTE | 2019-10-17 14:10 | NUR ---
PATIENT DISCHARGING HOME TODAY WITH FAMILY.[facility] WILL PROVIDE THERAPY AT HOME. NO NEW DME NEEDED AT THIS TIME.DR. LAZO 10/30/19 @ 2:15, DR. GRACE 10/30/19 @ 10:20. MEENAKSHI SIGNED, IMM SERVED AND EXPLAINED, ONE GIVEN TO PATIENT AND ONE FILED IN CHART. DC INSTRUCTIONS FAXED TO PCP, HOME HEALTH AND REVIEWED WITH PATIENT PER PRIMARY NURSE. NO COMPARE DATA REVIEWED PER PATIENT REQUEST.
--- NOTE | 2019-10-17 16:20 | NUR ---
DC HOME WITH ALL PERSONAL BELONGINGS. MEDS CALLED INTO PHARMACY. DSG CHANGED TO LEFT CALF PRIOR TO DC. REVIEWED MEDS, DC PLAN AND F/U APPTS. SHE DENIES QUESTIONS AND LEFT FLOOR IN WC.
--- NOTE | 2019-10-17 16:30 | NUR ---
MEDS CALLED INTO PHARMACY. SHE LEFT FLOOR IN WC WITH ALL PERSONAL BELONGINGS. DSG CHANGE DONE TO BACK OF LEFT CALF. BRIDGET WERE NOTED AT BEND OF KNEE AND EXTENDED FOR APPX 6 INCHES. BACK OF HER CALF HAS BLACK SKIN/SKAB AREA. MINIMAL DRAINAGE NOTED. HER LEG AND FOOT ARE SWOLLEN TO 3+.
== END 2019-10-17 16:30 | disposition home health service (06) | DRG 949 ==
LOC: D.REHAB 20:42
PROVIDERS: ADMIT Emergency Medicine; ATTEND Emergency Medicine
DX: S81.012D Laceration without foreign body, left knee, subsequent encounter (principal); Z68.41 Body mass index [BMI] 40.0-44.9, adult; R53.81 Other malaise; R53.1 Weakness; E66.01 Morbid (severe) obesity due to excess calories; G47.33 Obstructive sleep apnea (adult) (pediatric); I10 Essential (primary) hypertension; V80.010D Animal-rider injured by fall from or being thrown from horse in noncollision accident, subsequent encounter; R15.9 Full incontinence of feces; R32 Unspecified urinary incontinence; E05.90 Thyrotoxicosis, unspecified without thyrotoxic crisis or storm; J45.909 Unspecified asthma, uncomplicated

== ENCOUNTER 2019-10-25 12:03 | Inpatient (IN) | payer MEDICARE, OTHER ==
[~2019-10-25] VITALS: Ht 157.5 cm; Wt 108.4 kg
[~2019-10-25 12:03] MED LIST changes: +K-DUR20 MEQ PO
[2019-10-25 13:33] LABS: ANION GAP 12.7 mmol/L (8-16); CALCIUM 9.6 mg/dL (8.5-10.1); CARBON DIOXIDE 30.9 mmol/L (21.0-32.0); POTASSIUM - SERUM 3.6 mmol/L (3.5-5.1)
[2019-10-25 13:45] LABS: BASOPHILS 0.3 % (0-2); EOSINOPHILS 0.3 % (0-7); HEMOGLOBIN 11.9 g/dL (12-16); IMMATURE GRANULOCYTES 0.4 % (0-5); LYMPHOCYTES 18.1 % (15-50); MCH 26.3 pg (26.0-34.0); MCHC 31.3 g/dL (31.0-37.0); MCV 84.1 fL (80.0-100.0); MEAN PLATELET VOLUME 8.6 fL (7.4-10.4); NEUTROPHILS 74.9 % (40-80); RBC 4.52 10x6/uL (4.00-5.40); RDW 15.4 % (11.5-14.5)
[2019-10-25 13:48] LABS: PLATELET COUNT 557 10x3/uL (130-400)
[2019-10-25 14:13] VITALS: BP 155/64; BMI 44.0
[2019-10-25 14:44] LABS: ERYTHROCYTE SEDIMENTATION RATE 75 mm/hr (0-30)
--- NOTE | 2019-10-25 16:34 | NUR ---
OPA IN AIRWAY ON ADMIT
[2019-10-25 17:40] VITALS: BP 147/49
[2019-10-25 17:55] LABS: ERYTHROCYTE SEDIMENTATION RATE 86 mm/hr (0-30)
--- NOTE | 2019-10-25 17:59 | NUR ---
RECEIVED PATIENT FROM RECOVERY. A&O. VITALS STABLE. AT BEDSIDE. NO C/O PAIN. NO S/S OF ACUTE DISTRESS NOTED. WOUND VAC TO LEFT LOWER LEG. DENIES ANY NEEDS AT THIS TIME. CALL LIGHT IN REACH. WILL CONTINUE TO MONITOR.
[2019-10-25 20:00] VITALS: BP 115/56
--- NOTE | 2019-10-26 03:30 | NUR ---
PT UNABLE TO VOID. PERFORMED IN/OUT CATH. 650 CC'S CLEAR YELLOW URINE RETURNED. NO OTHER NEEDS. WILL CONTINUE TO MONITOR.
[2019-10-26 04:00] VITALS: BP 125/56
[2019-10-26 06:16] LABS: BASOPHILS 0.1 % (0-2); EOSINOPHILS 0.1 % (0-7); IMMATURE GRANULOCYTES 0.4 % (0-5); LYMPHOCYTES 8.2 % (15-50); MCH 25.5 pg (26.0-34.0); MCHC 30.6 g/dL (31.0-37.0); MCV 83.3 fL (80.0-100.0); MEAN PLATELET VOLUME 8.2 fL (7.4-10.4); MONOCYTES 4.9 % (2-11); NEUTROPHILS 86.3 % (40-80); RDW 15.1 % (11.5-14.5); WBC 15.7 10x3/uL (4.8-10.8)
[2019-10-26 06:17] LABS: HEMATOCRIT 29.4 % (36.0-48.0); PLATELET COUNT 433 10x3/uL (130-400); RBC 3.53 10x6/uL (4.00-5.40)
[2019-10-26 06:48] LABS: ALBUMIN 2.2 g/dL (3.4-5.0); ANION GAP 13.4 mmol/L (8-16); BILIRUBIN - TOTAL 0.4 mg/dL (0.2-1.3); CALCIUM 8.1 mg/dL (8.5-10.1); CARBON DIOXIDE 27.6 mmol/L (21.0-32.0); CREATININE - SERUM 0.9 mg/dL (0.6-1.3); PROTEIN - SERUM 6.2 g/dL (6.4-8.2)
--- NOTE | 2019-10-26 07:58 | NUR ---
PT SITTING UP IN BED WITH EYES OPEN, ALERT AND ORIENTED. IV LOCATED TO RIGHT HAND CURRENTLY SL, IV LOCATED TO LEFT HAND RUNNING 1/2NS @ 50ML. NO CURRENT S/S OF DISTRESS, DENIES CURRENT NEEDS, WILL CONT TO MONITOR.
[2019-10-26 08:00] VITALS: BP 132/54
[2019-10-26 13:26] VITALS: BP 129/49
[2019-10-26 13:36] VITALS: Ht 157.5 cm; Wt 108.4 kg
--- NOTE | 2019-10-26 13:50 | NUR ---
BREAUX PLACED, PUT OUT APPROX 300ML OF CLOUDY YELLOW URINE.
[2019-10-26 16:17] VITALS: BP 130/44
--- NOTE | 2019-10-26 19:00 | NUR ---
BEDSIDE REPORT RECEIVED AND CARE OF PT ASSUMED. PT LYING ON LEFT SIDE AT THIS TIME. WOUND VAC ON LEFT CALF WELL COMPRESSED WITH NO LEAKAGE ALARMS. IV TO LEFT FA PATENT WITH 1/2 NS INFUSING AT 50 ML/HR. WILL MONITOR FOR NEEDS.
--- NOTE | 2019-10-26 20:05 | NUR ---
ASSISTED PT UP TO CHAIR. CALL LIGHT WITHIN REACH.
--- NOTE | 2019-10-26 20:42 | NUR ---
HS MEDICATIONS GIVEN TO INCLUDE NORCO 5 PO FOR PAIN. WILL CONTINUE TO MONITOR FOR NEEDS. PT STILL SITTING UP IN CHAIR AT THIS TIME. WOUND VAC WELL COMPRESSED WITH NO LEAKAGE ALARMS.
[2019-10-26 21:40] VITALS: BP 112/36
[2019-10-26 23:45] VITALS: BP 127/50
[2019-10-27 04:24] VITALS: BP 120/44
[2019-10-27 07:11] LABS: BASOPHILS 0.3 % (0-2); EOSINOPHILS 1.3 % (0-7); HEMOGLOBIN 8.5 g/dL (12-16); IMMATURE GRANULOCYTES 0.4 % (0-5); LYMPHOCYTES 25.7 % (15-50); MCH 26.5 pg (26.0-34.0); MCHC 31.5 g/dL (31.0-37.0); MCV 84.1 fL (80.0-100.0); MEAN PLATELET VOLUME 8.5 fL (7.4-10.4); NEUTROPHILS 64.3 % (40-80); PLATELET COUNT 458 10x3/uL (130-400); RBC 3.21 10x6/uL (4.00-5.40); RDW 15.5 % (11.5-14.5); WBC 12.7 10x3/uL (4.8-10.8)
--- NOTE | 2019-10-27 07:15 | NUR ---
A&O RESTING IN BED WITH EYES OPEN. NO C/O PAIN. NO S/S OF ACUTE DISTRESS NOTED. BEDREST. BREAUX CATHETER PRESENT. UP WITH PHYSICAL THERAPY WITH WALKER. TURN Q2 HOURS. POD #3 I&D LEFT LEG WITH PROVENA WOUND VAC PLACEMENT. IV TO RIGHT HAND, SL AND LEFT FOREARM, 1/2 NS INFUSING @ 50ML/HR. SITE PATENT WITHOUT REDNESS OR SWELLING. POTASSIUM 3.0 THIS AM, WILL FOLLOW ELECTROLYTE PROTOCOL. DENIES ANY NEEDS AT THIS TIME. CALL LIGHT IN REACH. WILL CONTINUE TO MONITOR.
[2019-10-27 08:06] LABS: ALBUMIN 2.2 g/dL (3.4-5.0); BILIRUBIN - TOTAL 0.26 mg/dL (0.2-1.3); CARBON DIOXIDE 28.2 mmol/L (21.0-32.0); CREATININE - SERUM 1.1 mg/dL (0.6-1.3); PROTEIN - SERUM 6.4 g/dL (6.4-8.2)
[2019-10-27 08:18] LABS: ANION GAP 11.8 mmol/L (8-16)
[2019-10-27 09:53] VITALS: BP 146/57
[2019-10-27 12:45] VITALS: BP 140/50
[2019-10-27 14:11] LABS: MAGNESIUM - SERUM 1.7 mg/dL (1.8-2.4); VANCOMYCIN - TROUGH 22.5 ug/mL (10.0-20.0)
[2019-10-27 15:38] LABS: BASOPHILS 0.4 % (0-2); EOSINOPHILS 2.3 % (0-7); HEMATOCRIT 27.8 % (36.0-48.0); HEMOGLOBIN 8.6 g/dL (12-16); IMMATURE GRANULOCYTES 0.5 % (0-5); MCH 26.1 pg (26.0-34.0); MCHC 30.9 g/dL (31.0-37.0); MCV 84.2 fL (80.0-100.0); MEAN PLATELET VOLUME 8.2 fL (7.4-10.4); MONOCYTES 7.8 % (2-11); PLATELET COUNT 409 10x3/uL (130-400); RDW 15.5 % (11.5-14.5); WBC 11.3 10x3/uL (4.8-10.8)
[2019-10-27 16:03] LABS: ALBUMIN 2.1 g/dL (3.4-5.0); ANION GAP 9.4 mmol/L (8-16); BILIRUBIN - TOTAL 0.16 mg/dL (0.2-1.3); C-REACTIVE PROTEIN 12.3 mg/dL (0.0-0.9); CALCIUM 7.7 mg/dL (8.5-10.1); CARBON DIOXIDE 30.2 mmol/L (21.0-32.0); POTASSIUM - SERUM 3.6 mmol/L (3.5-5.1); PROTEIN - SERUM 6.2 g/dL (6.4-8.2)
[2019-10-27 16:37] VITALS: BP 143/67
[2019-10-27 16:44] LABS: ERYTHROCYTE SEDIMENTATION RATE 110 mm/hr (0-30)
--- NOTE | 2019-10-27 17:25 | NUR ---
I REVIEWED THIS PATIENT AND I AGREE WITH THE SHIFT ASSESSMENT COMPLETED BY THE FILLER MIXER TODAY.
--- NOTE | 2019-10-27 19:00 | NUR ---
BEDSIDE REPORT RECEIVED AND CARE OF PT ASSUMED. PT SITTING UP IN CHAIR AT THIS TIME. IV TO LEFT FA PATENT WITH 1/2 NS INFUSING AT 50 ML/HR. WOUND VAC ON LEFT LOWER LEG COMPRESSED WITH NO LEAKAGE ALARMS. WILL MONITOR FOR NEEDS.
--- NOTE | 2019-10-27 19:45 | NUR ---
ASSISTED PT BACK TO BED. CLEAN PADS ON BED. POSITIONED FOR COMFORT. EMPTIED 1500 YELLOW URINE FROM BREAUX BAG.
--- NOTE | 2019-10-27 20:38 | NUR ---
HS MEDICATIONS GIVEN. HELD HTN MEDS PT'S BP 124/47 THIS CHECK. WILL MONITOR CLOSELY THROUGHOUT SHIFT.
[2019-10-27 23:03] VITALS: BP 124/47
[2019-10-28 02:35] VITALS: BP 133/60
[2019-10-28 05:26] LABS: BASOPHILS 0.3 % (0-2); EOSINOPHILS 4.1 % (0-7); HEMATOCRIT 26.7 % (36.0-48.0); IMMATURE GRANULOCYTES 0.5 % (0-5); LYMPHOCYTES 25.9 % (15-50); MCH 25.3 pg (26.0-34.0); MCV 84.5 fL (80.0-100.0); MEAN PLATELET VOLUME 8.2 fL (7.4-10.4); NEUTROPHILS 61.2 % (40-80); PLATELET COUNT 385 10x3/uL (130-400); RBC 3.16 10x6/uL (4.00-5.40); RDW 15.6 % (11.5-14.5)
[2019-10-28 05:52] LABS: ANION GAP 8.5 mmol/L (8-16); BILIRUBIN - TOTAL 0.22 mg/dL (0.2-1.3); CALCIUM 7.9 mg/dL (8.5-10.1); CARBON DIOXIDE 30.3 mmol/L (21.0-32.0); POTASSIUM - SERUM 3.8 mmol/L (3.5-5.1)
[2019-10-28 07:13] VITALS: BP 140/59
--- NOTE | 2019-10-28 08:00 | NUR ---
ASSESSMENT PER FLOW SHEET. PATIENT IS WITHOUT DISTRESS.MONITOR FOR NEEDS
--- NOTE | 2019-10-28 08:48 | OP ---
PATIENT NAME: LAURIE CASTANEDA MEDICAL RECORD: [id number] :49 LOCATION:[id number] ADMISSION DATE:10/25/19 SURGEON: MELLISA GRACE DO DATE OF OPERATION: 10/25/2019 PROCEDURE PERFORMED: Left lower leg incision, debridement and wound VAC application. PREOPERATIVE DIAGNOSIS: Infection of left lower leg. POSTOPERATIVE DIAGNOSIS: Infection of left lower leg. INDICATIONS: Ms. Castaneda is a 74-year-old female who approximately 3 weeks ago fell off a horse and had a large laceration, essentially degloving the lower extremity below the knee posteriorly. I washed it out the day of and closed it. She went to rehab and this is the first clinic visit after showed up with purulent fluid pouring out of the wound and a large 12 x 5 cm area of necrosis just distal to the laceration, there was necrotic tissue of the skin. She was directly admitted and put on for surgery schedule for today for the procedure. She was informed of the risks including further infection, bleeding, damage to nerves or vessels in the area, continued pain, the need of multiple surgeries, and possible amputation and she signed the consent. SURGEON: Mellisa Grace DO DESCRIPTION OF PROCEDURE: The patient was taken to the operative suite, laid in the supine position, given general anesthetic and intubated. She was given a gram of vancomycin and she was then rolled over the prone position. The left lower leg was prepped and draped in sterile fashion. A timeout was performed. Everyone was in agreement with the correct site, side, patient, and procedure. I then began by opening the old wound. Purulence was pouring out and debriding any necrotic tissue. I then debrided the necrotic skin and opened all the way down to the fascia of the gastroc. I then washed the wound out with 6 liters of normal saline. I then debrided some more the tissue back to a bleeding surface of the wound and with 2-0 Prolene horizontal mattress fashion, approximated the wound the best I could and then at the most inferior aspect stuffed a wound VAC sponge in the wound approximately 6 inches or 15 cm into the wound and then left it out of the most distal hole of it. I then lined the wound with the plastic and then lined the wound with a VAC sponge and then put the wound VAC on, it held suction well. She was then rolled over to her regular bed and the knee immobilizer was placed on the patient. She was then awakened and taken to recovery in stable condition. There were cultures taken at the beginning of the procedure. TRANSINT:[id number] Voice Confirmation ID: [id number] DOCUMENT ID: [id number] MELLISA GRACE DO at 0848 CC: [id number] DICTATION DATE: 10/25/19 163 BUILDING CERTIFIER: 10/26/19 0307 ADM IN [place] [id number] [place] [id number]
[2019-10-28 09:31] VITALS: BP 144/58
[2019-10-28 12:34] VITALS: BP 144/53
--- NOTE | 2019-10-28 14:41 | NUR ---
Nutrition follow-up: Pt again NPO for I&D Pt POD 3 of I&D with wound vac placed PO intake of regular diet has been ~60-75% of meals Labs reviewed No BM charted; may need stool softener started Wt: 240# RDN following.
[2019-10-28 17:59] VITALS: BP 146/56
--- NOTE | 2019-10-28 19:00 | NUR ---
BEDSIDE REPORT RECEIVED AND CARE OF PT ASSUMED. ASSISTED PT UP TO USE BSC...HAD LARGE LOOSE BM. POSITIONED BACK IN BED FOR COMFORT. WOUND VAC ON LEFT LOWER LEG WELL COMPRESSED WITH NO LEAKAGE ALARMS. IV TO LEFT FA PATENT WITH 1/2 NS INFUSING AT 50 ML/HR. WILL MONITOR FOR NEEDS.
[2019-10-28 20:00] VITALS: BP 128/45
--- NOTE | 2019-10-28 21:07 | NUR ---
HS MEDICATIONS GIVEN. HELD HTN MEDS BP 128/45 THIS ASSESSMENT.
--- NOTE | 2019-10-28 23:25 | NUR ---
PT CONSENTED FOR AM PROCEDURE WITH WITNESS.
--- NOTE | 2019-10-28 23:33 | NUR ---
EKG PERFORMED PER ORDER. SCANNED INTO CHART.
[2019-10-29 04:00] VITALS: BP 135/56
--- NOTE | 2019-10-29 05:15 | NUR ---
HIBACLENS BATH PRFORMED AND ALL LINENS AND GOWN CHANGED.
--- NOTE | 2019-10-29 06:08 | NUR ---
ASSISTED UP TO USE BSC FOR LOOSE BM. POSITIONED BACK IN BED FOR COMFORT.
[2019-10-29 06:57] LABS: BASOPHILS 0.5 % (0-2); EOSINOPHILS 4.8 % (0-7); HEMATOCRIT 28.2 % (36.0-48.0); HEMOGLOBIN 8.6 g/dL (12-16); IMMATURE GRANULOCYTES 0.6 % (0-5); LYMPHOCYTES 19.2 % (15-50); MCH 25.9 pg (26.0-34.0); MCHC 30.5 g/dL (31.0-37.0); MCV 84.9 fL (80.0-100.0); MEAN PLATELET VOLUME 8.4 fL (7.4-10.4); MONOCYTES 8.8 % (2-11); NEUTROPHILS 66.1 % (40-80); RBC 3.32 10x6/uL (4.00-5.40); RDW 15.9 % (11.5-14.5); WBC 10.9 10x3/uL (4.8-10.8)
[2019-10-29 07:05] LABS: PLATELET COUNT 466 10x3/uL (130-400)
[2019-10-29 07:31] LABS: ALBUMIN 2.1 g/dL (3.4-5.0); ANION GAP 10.5 mmol/L (8-16); BILIRUBIN - TOTAL 0.2 mg/dL (0.2-1.3); CALCIUM 8.6 mg/dL (8.5-10.1); CARBON DIOXIDE 28.9 mmol/L (21.0-32.0); CREATININE - SERUM 1.2 mg/dL (0.6-1.3); POTASSIUM - SERUM 3.4 mmol/L (3.5-5.1); PROTEIN - SERUM 6.4 g/dL (6.4-8.2)
[2019-10-29 08:25] VITALS: BP 161/68
--- NOTE | 2019-10-29 09:00 | NUR ---
ASSESMENT PER FLOW SHEET. PATIENT IS WITHOUT DISTRESS.NPO FOR PROCEDURE TODAY.CALL LIGHT IN REACH
[2019-10-29 12:22] VITALS: BP 141/54
--- NOTE | 2019-10-29 15:03 | MORECARE ---
CASE MANAGEMENT DISCHARGE SUMMARY PATIENT: LAURIE MORENO UNIT: [id number] ADM DATE: 10/25/19 AGE: 74 : 47 SEX: F ROOM/BED: D.2219 AUTHOR: CHIKA DURAN PHYSICIAN: REFERRING PHYSICIAN: MELLISA GRACE DO DATE OF SERVICE: 10/29/19 Discharge Plan Patient Name: LAUREI MORENO [facility] [facility] 1945 Planned Disposition: Home with Home Health Anticipated Discharge Date: Discharge Date: Expected LOS: Initial Reviewer: [email or web address] Initial Review Date: 10/25/2019 Generated: 10/29/19 4:03 pm DCPIA - Discharge Planning Initial Assessment Updated by [email or web address]: Radha Merchant on 10/29/19 3:01 pm * PCP DMITRIY * Pharmacy [facility] * Preadmission Environment Home with Family * ADLs Independent * Equipment Bedside Commode CPAP Rolling Walker * List name and contact numbers for known caregivers / representatives who currently or will assist patient after discharge: MR LEON MORENO ( SPOUSE) [phone] * Verbal permission to speak to the caregivers and representatives has been obtained from the patient. Yes * Community resources currently utilized Home Health * Please name any agencies selected above. [facility] * Additional services required to return to the preadmission environment? Yes * Has this patient been hospitalized within the prior 30 days at any hospital? Yes Patient Name: LAURIE MORENO Page [phone] at 1503 All edits/amendments must be made on the electronic document DICTATION DATE: 10/29/19 1503 ART COORDINATOR: RANDALL 10/29/19 1503 RPT#: [id number] DC DATE: STATUS: ADM IN [facility] [address] [place] [address] END OF REPORT
--- NOTE | 2019-10-29 15:19 | MORECARE ---
CASE MANAGEMENT DISCHARGE SUMMARY PATIENT: LAURIE MORENO UNIT: [id number] ADM DATE: 10/25/19 AGE: 74 : 47 SEX: F ROOM/BED: D.2219 AUTHOR: CHIKA DURAN PHYSICIAN: REFERRING PHYSICIAN: MELLISA GRACE DO DATE OF SERVICE: 10/29/19 Discharge Plan Patient Name: LAURIE MORENO Facility: [facility]:[place] : 1945 Planned Disposition: Home with Home Health Anticipated Discharge Date: Discharge Date: Expected LOS: Initial Reviewer: [email or web address] Initial Review Date: 10/25/2019 Generated: 10/29/19 4:18 pm Comments DCP- Discharge Planning Updated by [email or web address]: Radha Merchant on 10/29/19 2:[address] Patient Name: LAURIE MORENO Admission Status: Urgent Accout number: [id number] Admission Date: 10-25-2019 : 1945 Admission Diagnosis:LACERATION WITHOUT FOREIGN BODY, LEFT LOWER LEG, INIT E Attending: MELLISA GRACE Current LOS: 4 Anticipated DC Date: Planned Disposition: Home with Home Health Primary Insurance: MEDICARE A & B Discharge Planning Comments: CM went to speak to patient and she was in surgery, I spoke with patient's to assess d/c planning needs. He stated that she was set up with home health and per medical records she was set up with [facility] by inpatient rehab. She has a walker, CPAP, BSC at home. I will meet with her at a later time to see what her DC plans may be. Will need to see how PT goes. CM to follow and assist with DC planning. Fur Cutter: Radha Merchant DCPIA - Discharge Planning Initial Assessment Updated by [id number]: Radha Merchant on 10/29/19 3:01 pm * PCP [facility] * Pharmacy [facility] [address] * Preadmission Environment Home with Family * ADLs Independent * Equipment Bedside Commode CPAP Rolling Walker * List name and contact numbers for known caregivers / representatives who currently or will assist patient after discharge: MR LEON MORENO ( SPOUSE) [phone] * Verbal permission to speak to the caregivers and representatives has been obtained from the patient. Yes * Community resources currently utilized Home Health * Please name any agencies selected above. [facility] * Additional services required to return to the preadmission environment? Yes * Has this patient been hospitalized within the prior 30 days at any hospital? Yes Last DP export: 10/29/19 2:03 pm Patient Name: LAURIE MORENO Page [id number] at 1519 All edits/amendments must be made on the electronic document DICTATION DATE: 10/29/191518 HANDICRAFT OR HOBBY SHOP MANAGER: RANDALL 10/29/191518 RPT#: [id number] DC DATE: STATUS: ADM IN [facility] [address] [place] [address] END OF REPORT
[2019-10-29 15:34] VITALS: BP 159/70
[2019-10-29 20:00] VITALS: BP 170/68
--- NOTE | 2019-10-29 23:41 | NUR ---
I have reviewed this patient and I concur with the Shift Assessment completed by the Licensed Practical Nurse today this shift.
[2019-10-30 04:00] VITALS: BP 112/44
[2019-10-30 06:55] LABS: BASOPHILS 0.2 % (0-2); EOSINOPHILS 0.5 % (0-7); HEMATOCRIT 25.2 % (36.0-48.0); HEMOGLOBIN 7.6 g/dL (12-16); IMMATURE GRANULOCYTES 0.5 % (0-5); MCH 25.7 pg (26.0-34.0); MCHC 30.2 g/dL (31.0-37.0); MCV 85.1 fL (80.0-100.0); MEAN PLATELET VOLUME 8.3 fL (7.4-10.4); MONOCYTES 5.4 % (2-11); NEUTROPHILS 77.4 % (40-80); PLATELET COUNT 488 10x3/uL (130-400); RBC 2.96 10x6/uL (4.00-5.40); RDW 15.9 % (11.5-14.5); WBC 12.8 10x3/uL (4.8-10.8)
[2019-10-30 07:20] LABS: ALBUMIN 2.1 g/dL (3.4-5.0); BILIRUBIN - TOTAL 0.21 mg/dL (0.2-1.3); CALCIUM 8.5 mg/dL (8.5-10.1); CARBON DIOXIDE 28.9 mmol/L (21.0-32.0); CREATININE - SERUM 1.3 mg/dL (0.6-1.3); POTASSIUM - SERUM 3.9 mmol/L (3.5-5.1); PROTEIN - SERUM 6.2 g/dL (6.4-8.2)
--- NOTE | 2019-10-30 09:03 | OP ---
PATIENT NAME: LAURIE CASTANEDA MEDICAL RECORD: [id number] :[birth year] LOCATION:D.MS [place]anan2219 ADMISSION DATE:10/25/19 SURGEON: MELLISA GRACE DO DATE OF OPERATION: 10/29/2019 PROCEDURE PERFORMED: Left lower extremity incision, debridement with wound VAC exchange. PREOPERATIVE DIAGNOSIS: Left lower extremity wound, complication dehiscence and infection complicated by her morbid obesity. POSTOPERATIVE DIAGNOSIS: Left lower extremity wound, complication dehiscence and infection complicated by her morbid obesity. INDICATIONS: Ms. Castaneda is a 74-year-old female who had an accident on a horse 3 weeks ago where she essentially degloved her left lower leg from the knee posteriorly down. She did not violate the fascia fortunately for her but due to her large size, she had quite a bit of adipose tissue in the back of the leg. This did complicate matters. That night this had happened, I irrigated it with 9 L and debrided it and closed it. She was then admitted and taken to rehab and then showed up in my clinic on Monday with purulent fluid pouring out of the wound. At that point, I admitted her for the first I&D. I did debriding all the necrotic tissue and irrigated with 9 L. I informed her that this will be a long road, I will do what I could to save her leg, and that we will get her on IV antibiotics. She did culture out 3 different bacteria on that occasion and since surgery she is on cefepime. I told her we have to do this again today and pretty much every Monday and Monday. She is aware of that in order to try to save her leg. She is also aware of the risks of further infection, nonhealing wounds, and possible amputation and she signed the consent. SURGEON: Mellisa Grace DO DESCRIPTION OF SURGERY: The patient was taken to the operative suite, laid in supine position, given general anesthetic and intubated. She was then put over in a prone position. There is a wound beyond the posterior leg. I then prepped and draped the left lower extremity. A time-out was performed. Everyone was in agreement with the correct side, site, patient, and procedure. I then began by excising the edges of the wound and part of it was necrotic. The most distal part of the proximal foot was healing well. The distal wound was opened up and any necrotic tissue was debrided with curettes and a pickup and a knife. I then irrigated the wound out with 6 L normal saline and inserted a wound VAC sponge. The wound at this point is 12 x 6 x 2 cm deep. The sponge was then placed in and wound VAC was applied. She was placed over on her bed, awakened in the supine position, taken to recovery in stable condition. Of note, cultures were taken during the procedure. BLOOD LOSS: Minimal. COMPLICATIONS: None. NTS:[id number] Voice Confirmation ID: [id number] DOCUMENT ID: [id number] OPERATIVE REPORT [id number] LAURIE CASTANEDA MICHAEL D, DO at 0903 CC: [id number] DICTATION DATE: 10/29/19 1452 ELECTRICAL ASSEMBLY TECHNICIAN: 10/30/19 0041 ADM IN [facility] [address] [place] [address]
[2019-10-30 09:58] VITALS: BP 138/53
[2019-10-30 12:47] VITALS: BP 115/52
[2019-10-30 18:06] VITALS: BP 166/50
--- NOTE | 2019-10-30 18:53 | NUR ---
PATIENT IS WITHOUT CHANGE. CONT PLAN OF CARE
[2019-10-30 20:00] VITALS: BP 123/50
[2019-10-31] VITALS: BP 131/52
[2019-10-31 04:00] VITALS: BP 136/54
[2019-10-31 05:16] LABS: % SATURATION 16 % (15-55); IRON 29 ug/dl (35-150); TOTAL IRON BIND CAPACITY 174 ug/dl (260-445); UNSAT IRON BIND CAPACITY 145 ug/dl (150-375)
[2019-10-31 05:19] LABS: BASOPHILS 0.3 % (0-2); EOSINOPHILS 4.7 % (0-7); HEMATOCRIT 23.9 % (36.0-48.0); IMMATURE GRANULOCYTES 0.6 % (0-5); LYMPHOCYTES 27.3 % (15-50); MCHC 30.5 g/dL (31.0-37.0); MCV 85.1 fL (80.0-100.0); MEAN PLATELET VOLUME 8.2 fL (7.4-10.4); MONOCYTES 7.2 % (2-11); NEUTROPHILS 59.9 % (40-80); PLATELET COUNT 439 10x3/uL (130-400); RBC 2.81 10x6/uL (4.00-5.40); RDW 16.3 % (11.5-14.5); WBC 12.4 10x3/uL (4.8-10.8)
--- NOTE | 2019-10-31 05:27 | NUR ---
I have reviewed this patient and I concur with the Shift Assessment completed by the Licensed Practical Nurse today this shift.
[2019-10-31 05:37] LABS: BILIRUBIN - TOTAL 0.23 mg/dL (0.2-1.3); CALCIUM 8.3 mg/dL (8.5-10.1); CARBON DIOXIDE 28.2 mmol/L (21.0-32.0); CREATININE - SERUM 1.4 mg/dL (0.6-1.3); PROTEIN - SERUM 5.8 g/dL (6.4-8.2)
[2019-10-31 05:43] LABS: ANION GAP 11.9 mmol/L (8-16); POTASSIUM - SERUM 3.1 mmol/L (3.5-5.1)
[2019-10-31 06:08] LABS: HEMOGLOBIN 7.3 g/dL (12-16)
--- NOTE | 2019-10-31 07:46 | NUR ---
ALERT AND ORIENTED. LUNGS CLEAR BILATERALLY. HEART SOUNDS S1 AND S2 HEARD IN ALL WALKER. BOWEL SOUNDS ACTIVE X 4. IV TO LEFT HAND PATENT WITHOUT REDNESS. DENIES NEEDS. BED LOW. CALL KIRK AND PERSONAL ITEMS IN REACH. WILL CONTINUE TO MONITOR.
[2019-10-31 09:00] VITALS: BP 154/52
--- NOTE | 2019-10-31 09:36 | NUR ---
CONSENT OBTAINED FOR PROCEDURE.
--- NOTE | 2019-10-31 10:25 | NUR ---
BLOOD TRANSFUSION UNIT 1 INITIATED. VITALS STABLE. WILL CONTINUE TO MONITOR.
--- NOTE | 2019-10-31 10:47 | NUR ---
BLOOD CONTINUES TRANSFUSING. VITALS STABLE. WILL CONTINUE TO MONITOR.
--- NOTE | 2019-10-31 13:00 | NUR ---
BLOOD TRANSFUSION UNIT 1 COMPLETE. VITALS STABLE.
--- NOTE | 2019-10-31 13:03 | NUR ---
BLOOD TRANSFUSION UNIT 2 INITIATED. VITALS STABLE. WILL CONTINUE TO MONITOR.
[2019-10-31 18:10] LABS: HEMATOCRIT 30.6 % (36.0-48.0); HEMOGLOBIN 9.5 g/dL (12-16)
[2019-10-31 20:00] VITALS: BP 139/58
[2019-11-01] VITALS: BP 147/54
[2019-11-01 04:00] VITALS: BP 166/63
--- NOTE | 2019-11-01 05:36 | NUR ---
I have reviewed this patient and I concur with the Shift Assessment completed by the Licensed Practical Nurse today this shift.
[2019-11-01 07:03] LABS: BASOPHILS 0.6 % (0-2); EOSINOPHILS 5.3 % (0-7); HEMATOCRIT 29.4 % (36.0-48.0); HEMOGLOBIN 9.1 g/dL (12-16); IMMATURE GRANULOCYTES 0.8 % (0-5); LYMPHOCYTES 21.3 % (15-50); MCH 25.9 pg (26.0-34.0); MCV 83.5 fL (80.0-100.0); MEAN PLATELET VOLUME 8.3 fL (7.4-10.4); MONOCYTES 7.9 % (2-11); NEUTROPHILS 64.1 % (40-80); PLATELET COUNT 395 10x3/uL (130-400); RDW 17.9 % (11.5-14.5); WBC 12.3 10x3/uL (4.8-10.8)
[2019-11-01 07:04] LABS: RBC 3.52 10x6/uL (4.00-5.40)
[2019-11-01 07:16] LABS: ALBUMIN 2.2 g/dL (3.4-5.0); BILIRUBIN - TOTAL 0.32 mg/dL (0.2-1.3); CALCIUM 8.5 mg/dL (8.5-10.1); CARBON DIOXIDE 27.4 mmol/L (21.0-32.0); CREATININE - SERUM 1.2 mg/dL (0.6-1.3); PROTEIN - SERUM 6.1 g/dL (6.4-8.2)
[2019-11-01 07:19] LABS: ANION GAP 11.2 mmol/L (8-16); POTASSIUM - SERUM 3.6 mmol/L (3.5-5.1)
--- NOTE | 2019-11-01 08:38 | MORECARE ---
CASE MANAGEMENT DISCHARGE SUMMARY PATIENT: LAURIE MORENO UNIT: [id number] ADM DATE: 10/25/19 AGE: 74 : [birth year] SEX: F ROOM/BED: D.2219 AUTHOR: CHIKA DURAN PHYSICIAN: REFERRING PHYSICIAN: MELLISA GRACE DO DATE OF SERVICE: 11/01/19 Discharge Plan Patient Name: LAURIE MORENO Facility: [facility]:[place] : 1945 Planned Disposition: Home with Home Health Anticipated Discharge Date: Discharge Date: Expected LOS: Initial Reviewer: [email or web address] Initial Review Date: 10/25/2019 Generated: 11/01/19 9:38 am DCP- Discharge Planning Updated by [email or web address]: Radha Merchant on 10/29/19 2:[address] Patient Name: LAURIE MORENO Admission Status: Urgent Accout number: [id number] Admission Date: 10-25-2019 : 1945 Admission Diagnosis:LACERATION WITHOUT FOREIGN BODY, LEFT LOWER LEG, INIT E Attending: MELLISA GRACE Current LOS: 4 Anticipated DC Date: Planned Disposition: Home with Home Health Primary Insurance: MEDICARE A & B Discharge Planning Comments: CM went to speak to patient and she was in surgery, I spoke with patient's to assess d/c planning needs. He stated that she was set up with home health and per medical records she was set up with [facility] by inpatient rehab. She has a walker, CPAP, BSC at home. I will meet with her at a later time to see what her DC plans may be. Will need to see how PT goes. CM to follow and assist with DC planning. Mixer Driver: Radha Merchant DCPIA - Discharge Planning Initial Assessment Updated by [email or web address]: Radha Merchant on 10/29/19 3:01 pm * PCP [facility] * Pharmacy [facility] [address] * Preadmission Environment Home with Family * ADLs Independent * Equipment Bedside Commode CPAP Rolling Walker * List name and contact numbers for known caregivers / representatives who currently or will assist patient after discharge: MR LEON MORENO ( SPOUSE) [phone] * Verbal permission to speak to the caregivers and representatives has been obtained from the patient. Yes * Community resources currently utilized Home Health * Please name any agencies selected above. [facility] * Additional services required to return to the preadmission environment? Yes * Has this patient been hospitalized within the prior 30 days at any hospital? Yes External Providers [facility] Next Contact Date: Service Request Date: Service Type: Resolution: Reviewer: Comments: Last DP export: 10/29/19 2:19 pm Patient Name: LAURIE MORENO Page [id number] at 0838 All edits/amendments must be made on the electronic document DICTATION DATE: 11/01/19837 APPRENTICESHIP CONSULTANT: RANDALL 11/01/19837 RPT#: [id number] DC DATE: STATUS: ADM IN [facility] [address] [place] [address] END OF REPORT
[2019-11-01 09:45] VITALS: BP 127/61
--- NOTE | 2019-11-01 11:42 | NUR ---
RECEIVED BEDSIDE REPORT. PT LAYING IN BED, A&O X4. DENIES PAIN. PICC LINE IN LEFT UPPER ARM, PATENT, NO REDNESS OR SWELLING, 1/2 NS @ 50. WOUND VAC TO LEFT KNEE, BRACE IN PLACE. BREAUX IN PLACE, PATENT AND DRAINING, STATLOCK IN PLACE. PT NPO UNTIL AFTER I&D OF LEFT KNEE THIS AFTERNOON. EDUCATED PT ON CL AND NEEDS. BED LOW, RAILS X2. CL IN REACH, WILL CONTINUE TO MONITOR.
[2019-11-01 12:54] VITALS: BP 127/55
--- NOTE | 2019-11-01 14:35 | NUR ---
ASSISSTED PT TO BSC. BM, SMALL, BROWN, LOOSE. BED LOW, CL IN REACH.
--- NOTE | 2019-11-01 16:27 | MORECARE ---
CASE MANAGEMENT DISCHARGE SUMMARY PATIENT: LAURIE MORENO UNIT: [id number] ADM DATE: 10/25/19 AGE: 74 : [birth year] SEX: F ROOM/BED: D.2211 AUTHOR: RENEE,CHIKA PHYSICIAN: REFERRING PHYSICIAN: MELLISA GRACE DO DATE OF SERVICE: 11/01/19 Discharge Plan Patient Name: LAURIE MORENO Facility: [facility]:[place] : 1945 Planned Disposition: Home with Home Health Anticipated Discharge Date: Discharge Date: Expected LOS: Initial Reviewer: [email or web address] Initial Review Date: 10/25/2019 Generated: 11/01/19 5:26 pm Comments DCP- Discharge Planning Updated by [email or web address]: Radha Merchant on 11/01/19 3:[address] Pallavi with [facility] called and gave a scott quote for 1419.35 Patient will not be discharging this weekend. She is waiting on cultures DCP- Discharge Planning Updated by [email or web address]: Radha Merchant on 10/29/19 2:[address] Patient Name: LAURIE MORENO Admission Status: Urgent Accout number: [id number] Admission Date: 10-25-2019 : 1945 Admission Diagnosis:LACERATION WITHOUT FOREIGN BODY, LEFT LOWER LEG, INIT E Attending: MELLISA GRACE Current LOS: 4 Anticipated DC Date: Planned Disposition: Home with Home Health Primary Insurance: MEDICARE A & B Discharge Planning Comments: CM went to speak to patient and she was in surgery, I spoke with patient's to assess d/c planning needs. He stated that she was set up with home health and per medical records she was set up with [facility] by inpatient rehab. She has a walker, CPAP, BSC at home. I will meet with her at a later time to see what her DC plans may be. Will need to see how PT goes. CM to follow and assist with DC planning. White Washer Piler: Radha Merchant DCPIA - Discharge Planning Initial Assessment Updated by [email or web address]: Radha Merchant on 10/29/19 3:01 pm * PCP [facility] * Pharmacy [facility] [address] * Preadmission Environment Home with Family * ADLs Independent * Equipment Bedside Commode CPAP Rolling Walker * List name and contact numbers for known caregivers / representatives who currently or will assist patient after discharge: MR LEON MORENO ( SPOUSE) [phone] * Verbal permission to speak to the caregivers and representatives has been obtained from the patient. Yes * Community resources currently utilized Home Health * Please name any agencies selected above. [facility] * Additional services required to return to the preadmission environment? Yes * Has this patient been hospitalized within the prior 30 days at any hospital? Yes Last DP export: 11/01/19 7:38 am Patient Name: LAURIE MORENO Page [phone] at 1627 All edits/amendments must be made on the electronic document DICTATION DATE: 11/01/191625 ARMORED CABLE MACHINE OPERATOR: RANDALL 11/01/191625 RPT#: [id number] DC DATE: STATUS: ADM IN [facility] [address] [place] [address] END OF REPORT
[2019-11-01 18:09] VITALS: BP 145/68
--- NOTE | 2019-11-01 19:10 | NUR ---
RECEIVED REPORT, ASSUMED CARE, DENIES PAIN, BREATHING EVEN UNLABRORED, CALL LIGHT IN REACH, BED LOWEST POSITION, NO S/S OF DISTRESS NOTED, IV PATENT, BREAUX TO GRAVITY
[2019-11-01 22:04] VITALS: BP 140/43
[2019-11-02 03:09] VITALS: BP 93/45
[2019-11-02 04:00] VITALS: BP 124/55
--- NOTE | 2019-11-02 04:15 | NUR ---
I have reviewed this patient and I concur with the Shift Assessment completed by the Licensed Practical Nurse today this shift.
[2019-11-02 05:23] LABS: BASOPHILS 0.2 % (0-2); EOSINOPHILS 0.4 % (0-7); HEMATOCRIT 28.1 % (36.0-48.0); HEMOGLOBIN 8.6 g/dL (12-16); IMMATURE GRANULOCYTES 0.7 % (0-5); LYMPHOCYTES 15.3 % (15-50); MCH 25.7 pg (26.0-34.0); MCHC 30.6 g/dL (31.0-37.0); MCV 83.9 fL (80.0-100.0); MEAN PLATELET VOLUME 8.1 fL (7.4-10.4); MONOCYTES 5.2 % (2-11); NEUTROPHILS 78.2 % (40-80); PLATELET COUNT 345 10x3/uL (130-400); RBC 3.35 10x6/uL (4.00-5.40); RDW 17.6 % (11.5-14.5); WBC 11.2 10x3/uL (4.8-10.8)
[2019-11-02 05:34] LABS: ANION GAP 12.2 mmol/L (8-16); BILIRUBIN - TOTAL 0.25 mg/dL (0.2-1.3); CALCIUM 8.4 mg/dL (8.5-10.1); CARBON DIOXIDE 26.4 mmol/L (21.0-32.0); CREATININE - SERUM 1.2 mg/dL (0.6-1.3); POTASSIUM - SERUM 3.6 mmol/L (3.5-5.1); PROTEIN - SERUM 5.7 g/dL (6.4-8.2)
--- NOTE | 2019-11-02 08:57 | OP ---
PATIENT NAME: LAURIE CASTANEDA MEDICAL RECORD: [id number] :[birth year] LOCATION:D.MS Buchanan2219 ADMISSION DATE:10/25/19 SURGEON: MELLISA GRACE DO DATE OF OPERATION: 11/01/2019 PROCEDURE PERFORMED: Left lower extremity irrigation and debridement with wound VAC exchange. PREOPERATIVE DIAGNOSIS: Left lower extremity infection complicated by morbid obesity. POSTOPERATIVE DIAGNOSIS: Left lower extremity infection complicated by morbid obesity. INDICATIONS: Ms. Castaneda is a 72-year-old female, who fell off a horse about 3 weeks ago sustained a large degloving of the posterior aspect of the lower leg. I irrigated it and debrided it and closed it and then 2 weeks later, she showed up with a purulent fluid coming out. I then did I&D and debrided the necrotic tissue that was there and on the back of the calf. I have done three of these debridements, debrided more. I told her that we can continue to do them until cultures were negative and then start with biologics to try to fill in the deficit. She is aware of the risk including continued need for IV antibiotics, pain, need for further surgery, and possible amputation. She signed a consent. SURGEON: Mellisa Grace DO DESCRIPTION OF THE PROCEDURE: The patient was taken to the operative suite, laid in the prone position, given general anesthetic and LMA was placed. The left lower extremity was then prepped and draped in sterile fashion. Timeout was performed. Everyone was agreeance with correct side, site, patient and procedure. I then began by culturing the wound and then irrigating with 6 liters of normal saline and debrided it with taking the devitalized tissue out with a curette as well as a pickup and a 10 blade. I was assisted by Bg Carrillo, certified surgical inventory control assistant. We then dried the leg and put in a wound VAC sponge and sealed it. She was then awakened and put back in the supine position on her bed, taken to recovery in stable condition. BLOOD LOSS: Minimal. COMPLICATIONS: None. Due to the removal of more nonviable tissue the wound site now 16 cm x 6 cm and is approximately 2 cm in depth. TRANSINT:[id number] Voice Confirmation ID: [id number] DOCUMENT ID: [id number] MELLISA GRACE DO at 0857 CC: [id number] DICTATION DATE: 11/01/19 1724 HOGSHEAD OPENER: 11/01/19 2318 ADM IN [facility] [address] [place] [id number]
[2019-11-02 10:26] VITALS: BP 140/53
[2019-11-02 14:48] VITALS: BP 152/46
--- NOTE | 2019-11-02 16:11 | NUR ---
HAS BEEN UP TO CHAIR. SHE IS WITHOUT SIGNS OF DISTRESS.CALL LIGHT IN REACH
--- NOTE | 2019-11-02 19:46 | NUR ---
RECEIVED REPORT, ASSUMED CARE, DENIES PAIN, BREATHING EVEN UNLABRORED, CALL LIGHT IN REACH, BED LOWEST POSITION, NO S/S OF DISTRESS NOTED, IV PATENT, BREAUX TO GRAVITY, DENIES PAIN AT THIS TIME
[2019-11-03 01:07] VITALS: BP 110/44
--- NOTE | 2019-11-03 03:10 | NUR ---
I have reviewed this patient and I concur with the Shift Assessment completed by the Licensed Practical Nurse today this shift.
[2019-11-03 06:16] LABS: BASOPHILS 0.5 % (0-2); EOSINOPHILS 5.8 % (0-7); HEMATOCRIT 28.8 % (36.0-48.0); HEMOGLOBIN 8.6 g/dL (12-16); IMMATURE GRANULOCYTES 0.8 % (0-5); LYMPHOCYTES 30.3 % (15-50); MCH 25.6 pg (26.0-34.0); MCHC 29.9 g/dL (31.0-37.0); MCV 85.7 fL (80.0-100.0); MEAN PLATELET VOLUME 8.4 fL (7.4-10.4); MONOCYTES 8.5 % (2-11); NEUTROPHILS 54.1 % (40-80); PLATELET COUNT 335 10x3/uL (130-400); RBC 3.36 10x6/uL (4.00-5.40); RDW 17.9 % (11.5-14.5); WBC 11.1 10x3/uL (4.8-10.8)
[2019-11-03 06:49] VITALS: BP 112/50
[2019-11-03 06:58] LABS: ALBUMIN 2.2 g/dL (3.4-5.0); ANION GAP 12.6 mmol/L (8-16); BILIRUBIN - TOTAL 0.38 mg/dL (0.2-1.3); CALCIUM 8.5 mg/dL (8.5-10.1); CARBON DIOXIDE 25.5 mmol/L (21.0-32.0); CREATININE - SERUM 1.3 mg/dL (0.6-1.3); POTASSIUM - SERUM 3.1 mmol/L (3.5-5.1); PROTEIN - SERUM 5.9 g/dL (6.4-8.2)
--- NOTE | 2019-11-03 07:20 | NUR ---
PT RESTING IN BED WITH EYES CLOSED, EASILY AROUSED TO SPEECH. ASSISTED PT IN TAKING OFF CPAP. ALERT AND ORIENTED. PICC LINE LOCATED TO LEFT UPPER ARM RUNNING 1/2NS @ 50ML. NO CURRENT S/S OF DISTRESS AT THIS TIME, DENIES CURRENT NEEDS, WILL CONT TO MONITOR.
[2019-11-03 09:03] VITALS: BP 131/48
[2019-11-03 12:53] VITALS: BP 124/50
[2019-11-03 17:31] VITALS: BP 112/43
--- NOTE | 2019-11-03 19:10 | NUR ---
RECEIVED REPORT, ASSUMED CARE, DENIES PAIN, BREATHING EVEN UNLABRORED, CALL LIGHT IN REACH, BED LOWEST POSITION, NO S/S OF DISTRESS NOTED, IV PATENT, BREAUX TO GRAVITY
[2019-11-03 23:19] VITALS: BP 148/59
[2019-11-04 03:24] VITALS: BP 134/62
[2019-11-04 05:37] LABS: BASOPHILS 0.3 % (0-2); EOSINOPHILS 6.5 % (0-7); HEMATOCRIT 28.7 % (36.0-48.0); HEMOGLOBIN 8.6 g/dL (12-16); IMMATURE GRANULOCYTES 0.5 % (0-5); LYMPHOCYTES 24.8 % (15-50); MCH 25.4 pg (26.0-34.0); MCV 84.9 fL (80.0-100.0); MEAN PLATELET VOLUME 8.7 fL (7.4-10.4); MONOCYTES 7.2 % (2-11); NEUTROPHILS 60.7 % (40-80); PLATELET COUNT 304 10x3/uL (130-400); RBC 3.38 10x6/uL (4.00-5.40); RDW 18.2 % (11.5-14.5); WBC 11.1 10x3/uL (4.8-10.8)
[2019-11-04 06:13] LABS: ALBUMIN 2.1 g/dL (3.4-5.0); ANION GAP 12.8 mmol/L (8-16); BILIRUBIN - TOTAL 0.24 mg/dL (0.2-1.3); CALCIUM 8.2 mg/dL (8.5-10.1); CARBON DIOXIDE 25.4 mmol/L (21.0-32.0); CREATININE - SERUM 1.2 mg/dL (0.6-1.3); POTASSIUM - SERUM 3.2 mmol/L (3.5-5.1); PROTEIN - SERUM 5.9 g/dL (6.4-8.2)
[2019-11-04 06:40] VITALS: BP 143/77
--- NOTE | 2019-11-04 07:30 | NUR ---
RECEIVED BEDSIDE REPORT. PT LAYING IN BED, DENIES PAIN, A&O X4. PICC IN LEFT UPPER ARM, PATENT AND INFUSING, NO REDNESS OR SWELLING. WOUND VAC TO LEFT KNEE, PATENT AND DRAINING. SCDS IN PLACE ON BILAT LOWER EXTREMITIES. PT ABLE TO AMBULATE WITH ONE PERSON ASSIST TO BSC. BREAUX IN PLACE, PATENT AND INFUSING, STATLOCK IN PLACE. EDUCATED PT ON CL AND NEEDS, VERBALIZED UNDERSTANDING. BED LOW, RAILS X2. CL IN REACH. WILL CONTINUE TO MONITOR.
[2019-11-04 09:22] VITALS: BP 142/48
[2019-11-04 13:05] VITALS: BP 141/64
[2019-11-04 17:54] VITALS: BP 126/52
--- NOTE | 2019-11-04 19:30 | NUR ---
PT SITTING UP IN BED WITHOUT DISTRESS, AOX4. LEFT UPPER ARM PICC INFUSING 1/2NS @ 50. SCDS ON. WOUND VAC IN PLACE TO LEFT LOWER LEG. BREAUX IN PLACE. PT DENIES PAIN AT THIS TIME. JUST GOT BACK TO ROOM AFTER WALKING TWO LAPS AROUND NURSES STATION. DENIES NEEDS. CL IN REACH, WILL CTM
[2019-11-04 20:00] VITALS: BP 138/47
--- NOTE | 2019-11-04 21:00 | NUR ---
GAVE PT HS MEDS. ASSISTED ONTO BEDSIDE COMMODE FOR BM AND THEN BACK TO BED. PT BUTTOCKS RED, APPLIED CREAM. PT GIVEN HIBICLENS AT THIS TIME, BREAUX CARE PROVIDED. WILL CTM
--- NOTE | 2019-11-04 23:30 | NUR ---
PT SITTING UP IN BED WATCHING TV, DENIES NEEDS. REMINDED PT SHE IS NPO AFTER MN, VERBALIZED UNDERSTANDING. WILL CTM
[2019-11-05] VITALS (15 sets, daily range): BP systolic 105–158; BP diastolic 48–67
[2019-11-05 06:46] LABS: BASOPHILS 0.4 % (0-2); HEMATOCRIT 28.2 % (36.0-48.0); HEMOGLOBIN 8.6 g/dL (12-16); IMMATURE GRANULOCYTES 0.5 % (0-5); MCH 25.9 pg (26.0-34.0); MCHC 30.5 g/dL (31.0-37.0); MCV 84.9 fL (80.0-100.0); MEAN PLATELET VOLUME 8.9 fL (7.4-10.4); MONOCYTES 7.4 % (2-11); NEUTROPHILS 62.7 % (40-80); PLATELET COUNT 317 10x3/uL (130-400); RBC 3.32 10x6/uL (4.00-5.40); RDW 18.3 % (11.5-14.5); WBC 11.6 10x3/uL (4.8-10.8)
[2019-11-05 06:52] LABS: ALBUMIN 2.1 g/dL (3.4-5.0); ANION GAP 12.6 mmol/L (8-16); BILIRUBIN - TOTAL 0.28 mg/dL (0.2-1.3); CALCIUM 8.4 mg/dL (8.5-10.1); CARBON DIOXIDE 26.6 mmol/L (21.0-32.0); CREATININE - SERUM 1.2 mg/dL (0.6-1.3); POTASSIUM - SERUM 3.2 mmol/L (3.5-5.1); PROTEIN - SERUM 5.8 g/dL (6.4-8.2)
--- NOTE | 2019-11-05 14:55 | NUR ---
Nutrition Follow-up: Diet: NPO for I&D this afternoon (was Regular diet) PO intake: 75-100% x all meals. She states that her appetite is down. Last BM: 11/04/19 x 2. Wt: 238# (10/29/19); Admit Wt: 240# (10/25/19) Meds noted: miralax, zosyn, 1/2NS@50 Labs noted: K 3.2(L), GFR 47(L), Alb 2.1(L) Skin: LLE wound with VAC, repeat I&D today Recommend resume Regular diet as soon as medically feasible. RD following.
--- NOTE | 2019-11-05 16:48 | NUR ---
BP UPON ARRIVAL WAS 169/74 CONFIRMED WITH ANESTHESIA NO ADDITIONAL MEDICATION NEEDED.
--- NOTE | 2019-11-05 16:50 | NUR ---
PATIENT BACK FROM SURGERY. VS STABLE. NO COMPLAINTS OR SIGNS OF DISTRESS. WOUND VAC ON AND WORKING. IV INTACT. FAMILY AT BEDSIDE. CALL LIGHT WITHIN REACH.
--- NOTE | 2019-11-05 18:45 | NUR ---
PATIENT IN BED WITH IV INTACT. NO COMPLAINTS OR SIGNS OF DISTRESS. WOUND VAC ON AND WORKING. VS STABLE. FAMILY AT BEDSIDE. CALL LIGHT WITHIN REACH.
--- NOTE | 2019-11-05 20:00 | NUR ---
PT SITTING UP IN BED WITHOUT DISTRESS, AOX4. DAUGHTER AT BEDSIDE. IV LEFT UPPER ARM INFUSING 1/2NS @ 50. WOUND VAC IN PLACE. VSS. DENIES PAIN OR NEEDS. CL IN REACH, WILL CTM
[2019-11-06] VITALS: BP 104/49
[2019-11-06 04:00] VITALS: BP 102/43
[2019-11-06 06:41] LABS: BASOPHILS 0.2 % (0-2); EOSINOPHILS 0.4 % (0-7); HEMATOCRIT 27.5 % (36.0-48.0); HEMOGLOBIN 8.4 g/dL (12-16); IMMATURE GRANULOCYTES 0.4 % (0-5); LYMPHOCYTES 14.7 % (15-50); MCH 25.9 pg (26.0-34.0); MCHC 30.5 g/dL (31.0-37.0); MCV 84.9 fL (80.0-100.0); MEAN PLATELET VOLUME 9.2 fL (7.4-10.4); MONOCYTES 5.8 % (2-11); NEUTROPHILS 78.5 % (40-80); PLATELET COUNT 316 10x3/uL (130-400); RBC 3.24 10x6/uL (4.00-5.40); RDW 18.1 % (11.5-14.5); WBC 11.1 10x3/uL (4.8-10.8)
[2019-11-06 06:48] LABS: ALBUMIN 2.1 g/dL (3.4-5.0); BILIRUBIN - TOTAL 0.19 mg/dL (0.2-1.3); CALCIUM 8.2 mg/dL (8.5-10.1); CARBON DIOXIDE 24.7 mmol/L (21.0-32.0); CREATININE - SERUM 1.4 mg/dL (0.6-1.3); PROTEIN - SERUM 5.8 g/dL (6.4-8.2)
[2019-11-06 06:58] LABS: POTASSIUM - SERUM 3.7 mmol/L (3.5-5.1)
--- NOTE | 2019-11-06 07:10 | NUR ---
RESTING IN BED WITH EYES CLOSED. RESPIRATIONS EVEN AND UNLABORED. NO S/S OF ACUTE DISTRESS NOTED. DAUGHTER AT BS. SCDS ON. UP WITH ASSIST. POD #1 FROM I&D LEFT LEG, DRESSING C/D/I WITH WOUND VAC. BREAUX CATHETER PRESENT. LEFT UPPER ARM PICC, 1/2 NS INFUSING @ 50ML/HR. SITE PATENT WITHOUT REDNESS OR SWELLING. DENIES ANY NEEDS AT THIS TIME. CALL LIGHT IN REACH. WILL CONTINUE TO MONITOR.
[2019-11-06 09:18] VITALS: BP 149/55
--- NOTE | 2019-11-06 09:27 | MORECARE ---
CASE MANAGEMENT DISCHARGE SUMMARY PATIENT: LAURIE MORENO UNIT: [id number] ADM DATE: 10/25/19 AGE: 74 : 47 SEX: F ROOM/BED: D.2219 AUTHOR: CHIKA DURAN PHYSICIAN: REFERRING PHYSICIAN: MELLISA GRACE DO DATE OF SERVICE: 11/06/19 Discharge Plan Patient Name: LAURIE MORENO Facility: [facility]:[place] : 1945 Planned Disposition: Home with Home Health Anticipated Discharge Date: Discharge Date: Expected LOS: Initial Reviewer: [email or web address] Initial Review Date: 10/25/2019 Generated: 11/06/19 10:26 am Comments DCP- Discharge Planning Updated by [email or web address]: Radha Merchant on 11/06/19 8:[address] NIKOLAI WITH [facility] HERE, I HAVE GIVEN HER THE IV PACK FOR A SCOTT QUOTE DCP- Discharge Planning Updated by [email or web address]: Radha Merchant on 11/01/19 3:[address] Pallavi with [facility] called and gave a scott quote for 1419.35 Patient will not be discharging this weekend. She is waiting on cultures DCP- Discharge Planning Updated by [id number]: Radha Merchant on 10/29/19 2:[address] Patient Name: LAURIE MORENO Admission Status: Urgent Accout number: [id number] Admission Date: 10-25-2019 : 1945 Admission Diagnosis:LACERATION WITHOUT FOREIGN BODY, LEFT LOWER LEG, INIT E Attending: MELLISA GRACE Current LOS: 4 Anticipated DC Date: Planned Disposition: Home with Home Health Primary Insurance: MEDICARE A & B Discharge Planning Comments: CM went to speak to patient and she was in surgery, I spoke with patient's to assess d/c planning needs. He stated that she was set up with home health and per medical records she was set up with [facility] by inpatient rehab. She has a walker, CPAP, BSC at home. I will meet with her at a later time to see what her DC plans may be. Will need to see how PT goes. CM to follow and assist with DC planning. Pricing Actuary: Radha Merchant DCPIA - Discharge Planning Initial Assessment Updated by [email or web address]: Radha Merchant on 10/29/19 3:01 pm * PCP [facility] * Pharmacy [facility] [address] * Preadmission Environment Home with Family * ADLs Independent * Equipment Bedside Commode CPAP Rolling Walker * List name and contact numbers for known caregivers / representatives who currently or will assist patient after discharge: MR LEON MORENO ( SPOUSE) [phone] * Verbal permission to speak to the caregivers and representatives has been obtained from the patient. Yes * Community resources currently utilized Home Health * Please name any agencies selected above. [facility] * Additional services required to return to the preadmission environment? Yes * Has this patient been hospitalized within the prior 30 days at any hospital? Yes External Providers External Provider: [facility] Next Contact Date: Service Request Date: Service Type: Resolution: Reviewer: Comments: Last DP export: 11/01/19 3:27 pm Patient Name: LAURIE MORENO Page 15721 at 0927 All edits/amendments must be made on the electronic document DICTATION DATE: 11/06/19925 TERRAZZO WORKER APPRENTICE: RANDALL 11/06/19925 RPT#: [id number] MT DATE: STATUS: ADM IN [facility] [address] [place] [address] END OF REPORT
[2019-11-06 12:27] VITALS: BP 127/47
--- NOTE | 2019-11-06 12:41 | NUR ---
I have reviewed this patient and I concur with the Shift Assessment completed by the Licensed Practical Nurse today this shift.
--- NOTE | 2019-11-06 17:44 | NUR ---
WOUND VAC SEAL LEAKING. TOOK OFF OLD SEAL AND REPLACED WITH NEW SEAL TO OPTIMIZE SUCTION FROM WOUND VAC. WOUND VAC NOT SHOWING A LEAK NOW.
[2019-11-06 18:01] VITALS: BP 142/52
--- NOTE | 2019-11-06 18:41 | NUR ---
A&O RESTING IN BED WITH EYES OPEN. NO C/O PAIN. NO S/S OF ACUTE DISTRESS NOTED. URINE IN BREAUX BAG, WENT FROM CLEAR/YELLOW, TO RED/ORANGE. PATIENT STATES NO DISCOMFORT WITH BREAUX. CALL LIGHT IN REACH. WILL CONTINUE TO MONITOR.
[2019-11-06 20:00] VITALS: BP 123/50
[2019-11-07] VITALS (7 sets, daily range): BP systolic 98–155; BP diastolic 42–55
--- NOTE | 2019-11-07 02:34 | NUR ---
I have reviewed this patient and I concur with the Shift Assessment completed by the Licensed Practical Nurse today this shift.
[2019-11-07 03:36] LABS: BILIRUBIN NEGATIVE (NEGATIVE); KETONE NEGATIVE (NEGATIVE); NITRITE NEGATIVE (NEGATIVE); UROBILINOGEN NORMAL (NORMAL)
[2019-11-07 03:46] LABS: WHITE CELLS - URINE 0-5 /hpf (0-5)
[2019-11-07 03:47] LABS: BACTERIA FEW /hpf (NONE SEEN); EPITHELIAL CELLS 0-5 /hpf (0-5); YEAST >1+ WITH HYPHAE /hpf (NONE SEEN)
[2019-11-07 06:19] LABS: BASOPHILS 0.4 % (0-2); EOSINOPHILS 6.7 % (0-7); HEMATOCRIT 27.6 % (36.0-48.0); HEMOGLOBIN 8.4 g/dL (12-16); IMMATURE GRANULOCYTES 0.4 % (0-5); LYMPHOCYTES 28.5 % (15-50); MCH 25.8 pg (26.0-34.0); MCHC 30.4 g/dL (31.0-37.0); MCV 84.9 fL (80.0-100.0); MEAN PLATELET VOLUME 9.1 fL (7.4-10.4); MONOCYTES 7.3 % (2-11); NEUTROPHILS 56.7 % (40-80); PLATELET COUNT 273 10x3/uL (130-400); RBC 3.25 10x6/uL (4.00-5.40); RDW 18.3 % (11.5-14.5); WBC 11.4 10x3/uL (4.8-10.8)
[2019-11-07 06:47] LABS: ALBUMIN 2.1 g/dL (3.4-5.0); ANION GAP 11.6 mmol/L (8-16); BILIRUBIN - TOTAL 0.19 mg/dL (0.2-1.3); CALCIUM 8.2 mg/dL (8.5-10.1); CARBON DIOXIDE 24.4 mmol/L (21.0-32.0); CREATININE - SERUM 1.4 mg/dL (0.6-1.3); PROTEIN - SERUM 5.8 g/dL (6.4-8.2)
--- NOTE | 2019-11-07 07:00 | NUR ---
A&O RESTING IN BED WITH EYES OPEN. NO C/O PAIN. NO S/S OF ACUTE DISTRESS NOTED. UP WITH WALKER. POD #2 I&D OF LEFT LEG, WOUND VAC PRESENT. SCDS ON. BREAUX CATHETER PRESENT. PICC TO LEFT UPPER ARM, 1/2 NS INFUSING @ 50ML/HR. SITE PATENT WITHOUT REDNESS OR SWELLING. DENIES ANY NEEDS AT THIS TIME. CALL LIGHT IN REACH. WILL CONTINUE TO MONITOR.
--- NOTE | 2019-11-07 10:55 | NUR ---
I have reviewed this patient and I concur with the Shift Assessment completed by the Licensed Practical Nurse today this shift.
--- NOTE | 2019-11-07 18:23 | NUR ---
THIS NURSE WALKED PATIENT AROUND NURSES STATION TWICE. NO C/O PAIN. NO S/S OF ACUTE DISTRESS NOTED. CALL LIGHT IN REACH. WILL CONTINUE TO MONITOR.
[2019-11-08 04:00] VITALS: BP 162/65
--- NOTE | 2019-11-08 07:15 | NUR ---
RECEIVED BEDSIDE REPORT. PT LAYING IN BED, A&O X4. DENIES PAIN. LEFT UPPER ARM MIDLINE, PATENT AND INFUSING, NO REDNESS OR SWELLING. WOUND VAC TO LEFT KNEE, PATENT AND DRAINING. BREAUX IN PLACE, PATENT AND DRAINING, CLR YELL URINE, STATLOCK IN PLACE. PT ABLE TO AMBULATE WITH MIN ONE PERSON ASSIST. EDUCATED PT ON CL AND NEEDS, VERBALIZED UNDERSTANDING. BED LOW, RAILS X2. CL IN REACH. WILL CONTINUE TO MONITOR.
[2019-11-08 08:17] LABS: BASOPHILS 0.5 % (0-2); EOSINOPHILS 5.3 % (0-7); HEMATOCRIT 31.3 % (36.0-48.0); HEMOGLOBIN 9.5 g/dL (12-16); IMMATURE GRANULOCYTES 0.4 % (0-5); LYMPHOCYTES 24.8 % (15-50); MCH 25.8 pg (26.0-34.0); MCHC 30.4 g/dL (31.0-37.0); MCV 85.1 fL (80.0-100.0); MEAN PLATELET VOLUME 9.6 fL (7.4-10.4); MONOCYTES 7.8 % (2-11); NEUTROPHILS 61.2 % (40-80); RBC 3.68 10x6/uL (4.00-5.40); RDW 18.6 % (11.5-14.5)
[2019-11-08 08:21] LABS: PLATELET COUNT 346 10x3/uL (130-400)
[2019-11-08 08:22] LABS: ALBUMIN 2.5 g/dL (3.4-5.0); ANION GAP 13.4 mmol/L (8-16); BILIRUBIN - TOTAL 0.24 mg/dL (0.2-1.3); CALCIUM 8.7 mg/dL (8.5-10.1); CARBON DIOXIDE 24.6 mmol/L (21.0-32.0); CREATININE - SERUM 1.4 mg/dL (0.6-1.3); MAGNESIUM - SERUM 1.6 mg/dL (1.8-2.4); PROTEIN - SERUM 6.8 g/dL (6.4-8.2)
[2019-11-08 09:07] VITALS: BP 144/51
[2019-11-08 12:31] VITALS: BP 122/54
--- NOTE | 2019-11-08 14:21 | NUR ---
OR CALLED FOR PREOP. GAVE PT PREOP MEDS, ASSISTED PT TO BR, EMPTIED 1200ML URINE FROM BREAUX. PT TOLERATED WELL.
--- NOTE | 2019-11-08 17:25 | NUR ---
PT ARRIVED TO PACU WITH LEFT KNEE IN IMMOBILIZER
[2019-11-08 17:53] VITALS: BP 150/70
[2019-11-08 22:24] VITALS: BP 126/76
[2019-11-08 23:08] VITALS: BP 130/64
[2019-11-09 01:13] VITALS: BP 130/64
[2019-11-09 06:14] VITALS: BP 121/54
[2019-11-09 06:27] LABS: BASOPHILS 0.3 % (0-2); EOSINOPHILS 0.1 % (0-7); HEMOGLOBIN 8.2 g/dL (12-16); IMMATURE GRANULOCYTES 0.4 % (0-5); LYMPHOCYTES 15.7 % (15-50); MCH 25.9 pg (26.0-34.0); MCHC 30.4 g/dL (31.0-37.0); MCV 85.2 fL (80.0-100.0); MEAN PLATELET VOLUME 9.4 fL (7.4-10.4); MONOCYTES 7.1 % (2-11); NEUTROPHILS 76.4 % (40-80); PLATELET COUNT 300 10x3/uL (130-400); RBC 3.17 10x6/uL (4.00-5.40); RDW 18.5 % (11.5-14.5); WBC 9.5 10x3/uL (4.8-10.8)
[2019-11-09 06:54] LABS: ANION GAP 13.3 mmol/L (8-16); BILIRUBIN - TOTAL 0.28 mg/dL (0.2-1.3); CREATININE - SERUM 1.4 mg/dL (0.6-1.3); MAGNESIUM - SERUM 1.5 mg/dL (1.8-2.4); POTASSIUM - SERUM 3.3 mmol/L (3.5-5.1); PROTEIN - SERUM 5.5 g/dL (6.4-8.2)
[2019-11-09 09:50] VITALS: BP 132/67
[2019-11-09 13:12] VITALS: BP 131/59
[2019-11-09 16:00] VITALS: BP 102/40
--- NOTE | 2019-11-09 19:02 | NUR ---
PATIENT BLADDER TRAINED EARLIER FOR A COUPLE OF HOURS. BREAUX REMOVED NOW. PATIENT PLACED ON BED BARCENAS. NO COMPLAINTS OR SIGNS OF DISTRESS. IV AND WOUND VAC ON AND INTACT. CALL LIGHT WITHIN REACH.
--- NOTE | 2019-11-09 20:12 | NUR ---
ASSUMED CARE OF PATIENT AT 1900, NO DISTRESS NOTED, PATIENT READING, DENIES NEED TO VOID AT THIS TIME, BRACE TO LEFT LEG INTACT, WOUND VAC INTACT AND OPERATING WITHOUT COMPLICATIONS, WILL CONTINUE TO MONITOR PATIENT, CALL LIGHT WITHIN REACH
[2019-11-09 21:14] VITALS: BP 120/46
[2019-11-10 01:21] VITALS: BP 119/69
[2019-11-10 06:17] VITALS: BP 136/56
[2019-11-10 06:28] LABS: BASOPHILS 0.8 % (0-2); EOSINOPHILS 3.7 % (0-7); HEMATOCRIT 26.6 % (36.0-48.0); HEMOGLOBIN 7.9 g/dL (12-16); IMMATURE GRANULOCYTES 0.3 % (0-5); LYMPHOCYTES 31.6 % (15-50); MCH 25.5 pg (26.0-34.0); MCHC 29.7 g/dL (31.0-37.0); MCV 85.8 fL (80.0-100.0); MEAN PLATELET VOLUME 9.7 fL (7.4-10.4); MONOCYTES 9.7 % (2-11); NEUTROPHILS 53.9 % (40-80); PLATELET COUNT 268 10x3/uL (130-400); RDW 18.8 % (11.5-14.5); WBC 9.9 10x3/uL (4.8-10.8)
[2019-11-10 07:13] LABS: ALBUMIN 2.1 g/dL (3.4-5.0); ANION GAP 12.6 mmol/L (8-16); BILIRUBIN - TOTAL 0.27 mg/dL (0.2-1.3); CALCIUM 8.4 mg/dL (8.5-10.1); CARBON DIOXIDE 24.7 mmol/L (21.0-32.0); CREATININE - SERUM 1.5 mg/dL (0.6-1.3); MAGNESIUM - SERUM 1.8 mg/dL (1.8-2.4); POTASSIUM - SERUM 3.3 mmol/L (3.5-5.1); PROTEIN - SERUM 5.7 g/dL (6.4-8.2)
[2019-11-10 08:46] VITALS: BP 134/55
[2019-11-10 12:44] VITALS: BP 146/57
--- NOTE | 2019-11-10 12:49 | OP ---
PATIENT NAME: LAURIE CASTANEDA MEDICAL RECORD: [id number] :[birth year] LOCATION:D.MS [place].2219 ADMISSION DATE:10/25/19 SURGEON: MELLISA GRACE DO DATE OF OPERATION: 11/08/2019 PROCEDURE PERFORMED: Left lower leg wound, irrigation and debridement with Kerecis and wound VAC application. PREOPERATIVE DIAGNOSIS: Open wound, left lower leg. POSTOPERATIVE DIAGNOSIS: Open wound, left lower leg. INDICATIONS: Ms. Castaneda is a 74-year-old female who initially was injured falling off a horse with essentially degloving in the left lower limb. I washed it out and closed it and then she came to my clinic with drainage from it and it was infected. I have gone through a series of irrigation and debridements with her. She has finally had negative cultures. She had been on IV antibiotics and with her negative cultures at 3 days, I told we do Kerecis and wound VAC and try to get to close, but she would probably need a skin graft following all that. She was thus certainly not at her last surgery, but would be at least 2 weeks for next one. She is okay with that and is aware of the risks including further infection, bleeding, damage to nerves or vessels, need for further surgery, continued pain, blood loss, blood clots, and even and amputation. She signed the consent. SURGEON: Mellisa Grace DO DESCRIPTION OF PROCEDURE: The patient was taken to the operative suite, laid in the prone position. She was then sedated and LMA was placed. The left lower extremity was prepped and draped in sterile fashion. Timeout was performed. Everyone was in agreement with the correct site, side, patient, and procedure. I then irrigated out the wound and used curettes to remove any devitalized tissue and get good bleeding tissue. I then put in several Kerecis patches after meshing them and they were sutured into place with 4-0 Monocryl. The wound measured to be 13 x 6 cm and approximately 1 cm deep. Once that was put in place, a silver sponge wound VAC was then traced out over the wound and placed in the wound and then Prevena VAC was placed on the wound and sealed. She was then awakened and put in the supine position. Knee immobilizer placed. She was awakened and taken to recovery in stable condition. BLOOD LOSS: Minimal. COMPLICATIONS: None. TRANSINT:[id number] Voice Confirmation ID: [id number] DOCUMENT ID: [id number] MELLISA GRACE DO at 1249 CC: [id number] DICTATION DATE: 11/08/19 1718 SUPERVISOR FUNCTIONAL TESTING: 11/09/[address] [facility] [address] [id number]
[2019-11-10 15:12] LABS: BILIRUBIN NEGATIVE (NEGATIVE); KETONE NEGATIVE (NEGATIVE); NITRITE NEGATIVE (NEGATIVE); UROBILINOGEN NORMAL mg/dL (< 2)
[2019-11-10 16:42] VITALS: BP 121/47
[2019-11-10 22:11] VITALS: BP 142/48
[2019-11-11 01:38] VITALS: BP 112/43
[2019-11-11 05:43] VITALS: BP 125/59
[2019-11-11 06:56] LABS: BASOPHILS 0.9 % (0-2); EOSINOPHILS 5.2 % (0-7); HEMATOCRIT 27.4 % (36.0-48.0); HEMOGLOBIN 8.2 g/dL (12-16); IMMATURE GRANULOCYTES 0.5 % (0-5); LYMPHOCYTES 26.5 % (15-50); MCH 25.8 pg (26.0-34.0); MCHC 29.9 g/dL (31.0-37.0); MCV 86.2 fL (80.0-100.0); MEAN PLATELET VOLUME 10.2 fL (7.4-10.4); MONOCYTES 11.2 % (2-11); NEUTROPHILS 55.7 % (40-80); PLATELET COUNT 292 10x3/uL (130-400); RBC 3.18 10x6/uL (4.00-5.40); RDW 18.8 % (11.5-14.5); WBC 8.5 10x3/uL (4.8-10.8)
[2019-11-11 07:03] LABS: ALBUMIN 2.1 g/dL (3.4-5.0); ANION GAP 11.9 mmol/L (8-16); BILIRUBIN - TOTAL 0.29 mg/dL (0.2-1.3); CALCIUM 8.3 mg/dL (8.5-10.1); CARBON DIOXIDE 25.2 mmol/L (21.0-32.0); CREATININE - SERUM 1.5 mg/dL (0.6-1.3); MAGNESIUM - SERUM 1.6 mg/dL (1.8-2.4); POTASSIUM - SERUM 3.1 mmol/L (3.5-5.1); PROTEIN - SERUM 5.8 g/dL (6.4-8.2)
--- NOTE | 2019-11-11 08:01 | NUR ---
SITTING IN CHAIR AT BEDSIDE WATCHING TV. NO ACUTE DISTRESS NOTED. DENIES PAIN AT THIS TIME. CALL LIGHT WITHIN REACH. NEEDS ANTICIPATED AND MET. WILL CONTINUE TO MONITOR
[2019-11-11] MEDS ORDERED: DIFLUCAN150 MG PO (08:23)
[2019-11-11 09:11] VITALS: BP 133/55
--- NOTE | 2019-11-11 10:20 | MORECARE ---
CASE MANAGEMENT DISCHARGE SUMMARY PATIENT: LAURIE MORENO UNIT: [id number] ADM DATE: 10/25/19 AGE: 74 : [birth year] SEX: F ROOM/BED: D.2219 AUTHOR: CHIKA DURAN PHYSICIAN: REFERRING PHYSICIAN: MELLISA GRACE DO DATE OF SERVICE: 11/11/19 Discharge Plan Patient Name: LAURIE MORENO Facility: [facility]:[place] : 1945 Planned Disposition: Home with Home Health Anticipated Discharge Date: Discharge Date: Expected LOS: Initial Reviewer: [email or web address] Initial Review Date: 10/25/2019 Generated: 11/11/19 11:20 am DCP- Discharge Planning Updated by [email or web address]: Radha Merchant on 11/06/19 8:[address] NIKOLAI WITH [facility] HERE, I HAVE GIVEN HER THE IV PACK FOR A SCOTT QUOTE DCP- Discharge Planning Updated by [email or web address]: Radha Merchant on 11/01/19 3:[address] Pallavi with [place] called and gave a scott quote for 1419.35 Patient will not be discharging this weekend. She is waiting on cultures DCP- Discharge Planning Updated by [email or web address]: Radha Merchant on 10/29/19 2:[address] Patient Name: LAURIE MORENO Admission Status: Urgent Accout number: [id number] Admission Date: 10-25-2019 : 1945 Admission Diagnosis:LACERATION WITHOUT FOREIGN BODY, LEFT LOWER LEG, INIT E Attending: MELLISA GRACE Current LOS: 4 Anticipated DC Date: Planned Disposition: Home with Home Health Primary Insurance: MEDICARE A & B Discharge Planning Comments: CM went to speak to patient and she was in surgery, I spoke with patient's to assess d/c planning needs. He stated that she was set up with home health and per medical records she was set up with [facility] by inpatient rehab. She has a walker, CPAP, BSC at home. I will meet with her at a later time to see what her DC plans may be. Will need to see how PT goes. CM to follow and assist with DC planning. Protective Signal Repairer: Radha Merchant DCPIA - Discharge Planning Initial Assessment Updated by [email or web address]: Radha Merchant on 10/29/19 3:01 pm * PCP [facility] * [facility] * Preadmission Environment Home with Family * ADLs Independent * Equipment Bedside Commode CPAP Rolling Walker * List name and contact numbers for known caregivers / representatives who currently or will assist patient after discharge: MR LEON MORENO ( SPOUSE) [phone] * Verbal permission to speak to the caregivers and representatives has been obtained from the patient. Yes * Community resources currently utilized Home Health * Please name any agencies selected above. [facility] * Additional services required to return to the preadmission environment? Yes * Has this patient been hospitalized within the prior 30 days at any hospital? Yes Last DP export: 11/06/19 8:26 am Patient Name: LAURIE MORENO Page [id number] at 1020 All edits/amendments must be made on the electronic document DICTATION DATE: 11/11/19 1020 ACTIVITY SPECIALIST: RANDALL 11/11/19 1020 RPT#: [id number] DC DATE: STATUS: ADM IN [facility] [address] [place] [address] END OF REPORT
--- NOTE | 2019-11-11 10:31 | MORECARE ---
CASE MANAGEMENT DISCHARGE SUMMARY PATIENT: LAURIE MORENO UNIT: [id number] ADM DATE: 10/25/19 AGE: 74 : 47 SEX: F ROOM/BED: D.2219 AUTHOR: RENEE,DOC PHYSICIAN: REFERRING PHYSICIAN: MELLISA GRACE DO DATE OF SERVICE: 11/11/19 Discharge Plan Patient Name: LAURIE MORENO Facility: [facility]:[place] : 1945 Planned Disposition: Home with Home Health Anticipated Discharge Date: Discharge Date: Expected LOS: Initial Reviewer: [email or web address] Initial Review Date: 10/25/2019 Generated: 11/11/19 11:30 am Comments DCP- Discharge Planning Updated by [email or web address]: Radha Merchant on 11/11/19 9:[address] PATIENT WILL BE DISCHARGING HOME TODAY WITH [facility] AND IV ABX WITH [facility]. [facility] SCOTT WAS 1176.94 [facility]OTT WAS 560.07 PER WEEK [facility] WILL COME TEACH HER AND HER . IMM SERVED AND EXPLAINED. CM TO FOLLOW AND ASSIST WITH DC NEEDED DCP- Discharge Planning Updated by [email or web address]: Radha Merchant on 11/06/19 8:[address] NIKOLAI WITH [facility] HERE, I HAVE GIVEN HER THE IV PACK FOR A SCOTT QUOTE DCP- Discharge Planning Updated by [email or web address]: Radha Merchant on 11/01/19 3:[address] Pallavi with [place] called and gave a scott quote for 1419.35 Patient will not be discharging this weekend. She is waiting on cultures DCP- Discharge Planning Updated by [email or web address]: Radha Merchant on 10/29/19 2:[address] Patient Name: LAURIE MORENO Admission Status: Urgent Accout number: [id number] Admission Date: 10-25-2019 : 1945 Admission Diagnosis:LACERATION WITHOUT FOREIGN BODY, LEFT LOWER LEG, INIT E Attending: MELLISA GRACE Current LOS: 4 Anticipated DC Date: Planned Disposition: Home with Home Health Primary Insurance: MEDICARE A & B Discharge Planning Comments: CM went to speak to patient and she was in surgery, I spoke with patient's to assess d/c planning needs. He stated that she was set up with home health and per medical records she was set up with [facility] by inpatient rehab. She has a walker, CPAP, BSC at home. I will meet with her at a later time to see what her DC plans may be. Will need to see how PT goes. CM to follow and assist with DC planning. Overlock Collar Setter: Radah Merchant DCPIA - Discharge Planning Initial Assessment Updated by [id number]: Radha Merchant on 10/29/19 3:01 pm * PCP VON[facility] * [facility] * Preadmission Environment Home with Family * ADLs Independent * Equipment Bedside Commode CPAP Rolling Walker * List name and contact numbers for known caregivers / representatives who currently or will assist patient after discharge: MR LEON MORENO ( SPOUSE) [phone] * Verbal permission to speak to the caregivers and representatives has been obtained from the patient. Yes * Community resources currently utilized Home Health * Please name any agencies selected above. [facility] * Additional services required to return to the preadmission environment? Yes * Has this patient been hospitalized within the prior 30 days at any hospital? Yes External Providers [facility] Next Contact Date: Service Request Date: Service Type: Resolution: Reviewer: Comments: Coverage Notice Reviewer: [id number] Sussy Merchant Notice Issued Date-Time: 11/11/2019 10:10 Notice Type: IM Discharge Notice Notice Delivered To: Patient Relationship to Patient: Zigzag Elastic Attacher Name: Delivery Method: HAND - Hand Delivered Roxana Days: Prior Verbal Notification: Recipient Understood Notice: Yes Recipient Signature: Yes Med Rec Note Co-signed by Attending: Coverage Notice Comment: IMM SERVED AND EXPLAINED. Reviewer: [id number] Sussy Merchant Notice Issued Date-Time: 11/11/2019 10:10 Notice Type: Patient Choice Letter Notice Delivered To: Patient Relationship to Patient: Zigzag Elastic Attacher Name: Delivery Method: HAND - Hand Delivered Roxana Days: Prior Verbal Notification: Recipient Understood Notice: Yes Recipient Signature: Yes Med Rec Note Co-signed by Attending: Coverage Notice Comment: MEENAKSHI WITH [facility] Last DP export: 11/11/19 9:20 a Patient Name: LAURIE MORENO Page [id number] at 1031 All edits/amendments must be made on the electronic document DICTATION DATE: 11/11/19 1031 ADON: RANDALL 11/11/19 1031 RPT#: [id number] DC DATE: STATUS: ADM IN [facility] [address] [place] [address] END OF REPORT
--- NOTE | 2019-11-11 16:04 | NUR ---
DISCUSSED DISCHARGE WITH PATIENT AND AT BEDSIDE. RECEIVED INFO WELL. VERBALIZED UNDERSTANDING. NO ACUTE DISTRESS NOTED. DENIES PAIN AT THIS TIME. TRANSFERRED TO FRONT DOOR VIA WC. DRIVING HOME IN PERSONAL VEHICLE
--- NOTE | 2019-11-12 08:05 | MORECARE ---
CASE MANAGEMENT DISCHARGE SUMMARY PATIENT: LAURIE MORENO UNIT: [id number] ADM DATE: 10/25/19 AGE: 74 : [birth year] SEX: F ROOM/BED: D.2219 AUTHOR: RENEE,CHIKA PHYSICIAN: REFERRING PHYSICIAN: MELLISA GRACE DO DATE OF SERVICE: 11/12/19 Discharge Plan Patient Name: LAURIE MORENO Facility: [facility]:[place] : 1945 Planned Disposition: Home with Home Health Anticipated Discharge Date: Discharge Date: 11/11/2019 Expected LOS: 0 Initial Reviewer: [email or web address] Initial Review Date: 10/25/2019 Generated: 11/12/19 9:05 am Comments DCP- Discharge Planning Updated by [email or web address]: Radha Merchant on 11/11/19 9:[address] PATIENT WILL BE DISCHARGING HOME TODAY WITH [facility] AND IV [facility]X WITH [facility]. [facility] WAS 1176.94 [facility] WAS 560.07 PER WEEK [facility] WILL COME TEACH HER AND HER . IMM SERVED AND EXPLAINED. CM TO FOLLOW AND ASSIST WITH DC NEEDED DCP- Discharge Planning Updated by [email or web address]: Radha Merchant on 11/06/19 8:[address] NIKOLAI WITH [facility] HERE, I HAVE GIVEN HER THE IV PACK FOR A SCOTT QUOTE DCP- Discharge Planning Updated by [id number]: Radha Merchant on 11/01/19 3:[address] Pallavi with [place] called and gave a scott quote for 1419.35 Patient will not be discharging this weekend. She is waiting on cultures DCP- Discharge Planning Updated by [email or web address]: Radha Merchant on 10/29/19 2:[address] Patient Name: LAURIE MORENO Admission Status: Urgent Accout number: [id number] Admission Date: 10-25-2019 : 1945 Admission Diagnosis:LACERATION WITHOUT FOREIGN BODY, LEFT LOWER LEG, INIT E Attending: MELLISA GRACE Current LOS: 4 Anticipated DC Date: Planned Disposition: Home with Home Health Primary Insurance: MEDICARE A & B Discharge Planning Comments: CM went to speak to patient and she was in surgery, I spoke with patient's to assess d/c planning needs. He stated that she was set up with home health and per medical records she was set up with [facility] by inpatient rehab. She has a walker, CPAP, BSC at home. I will meet with her at a later time to see what her DC plans may be. Will need to see how PT goes. CM to follow and assist with DC planning. Measurement Supervisor: Radha Merchant DCPIA - Discharge Planning Initial Assessment Updated by [email or web address]: Radha Merchant on 10/29/19 3:01 pm * PCP MIL[facility] * [facility] * Preadmission Environment Home with Family * ADLs Independent * Equipment Bedside Commode CPAP Rolling Walker * List name and contact numbers for known caregivers / representatives who currently or will assist patient after discharge: MR LEON MORENO ( SPOUSE) [phone] * Verbal permission to speak to the caregivers and representatives has been obtained from the patient. Yes * Community resources currently utilized Home Health * Please name any agencies selected above. [facility] * Additional services required to return to the preadmission environment? Yes * Has this patient been hospitalized within the prior 30 days at any hospital? Yes Coverage Notice Reviewer: [email or web address] Sussy Merchant Notice Issued Date-Time: 11/11/2019 10:10 Notice Type: IM Discharge Notice Notice Delivered To: Patient Relationship to Patient: Community Leader Name: Delivery Method: HAND - Hand Delivered Roxana Days: Prior Verbal Notification: Recipient Understood Notice: Yes Recipient Signature: Yes Med Rec Note Co-signed by Attending: Coverage Notice Comment: IMM SERVED AND EXPLAINED. Reviewer: [id number] Sussy Merchant Notice Issued Date-Time: 11/11/2019 10:10 Notice Type: Patient Choice Letter Notice Delivered To: Patient Relationship to Patient: Community Leader Name: Delivery Method: HAND - Hand Delivered Roxana Days: Prior Verbal Notification: Recipient Understood Notice: Yes Recipient Signature: Yes Med Rec Note Co-signed by Attending: Coverage Notice Comment: MEENAKSHI WITH [facility] Last DP export: 11/11/19 9:31 a Patient Name: LAURIE MORENO Page 15023 at 0805 All edits/amendments must be made on the electronic document DICTATION DATE: 11/12/19804 INVAS TECH: RANDALL 11/12/19804 RPT#: [id number] DC DATE:11/11/19 STATUS: DIS IN [facility] [address] [facility] [place] [address] END OF REPORT
--- NOTE | 2019-11-13 13:53 | OP ---
PATIENT NAME: LAURIE CASTANEDA MEDICAL RECORD: [id number] :[birth year] LOCATION:D.MS [place]2219 ADMISSION DATE:10/25/19 SURGEON: MELLISA GRACE DO DATE OF OPERATION: 11/05/2019 PROCEDURE PERFORMED: Left lower extremity irrigation and debridement with wound VAC exchange. PREOPERATIVE DIAGNOSIS: Left lower leg infection. POSTOPERATIVE DIAGNOSIS: Left lower leg infection. INDICATIONS: Ms. Castaneda is a 74-year-old female who has undergone serial debridements for an infection of the left lower leg after having a laceration repaired. It got infected from horse accident. We have been culturing her every time to see if it does not culture any bacteria and once it does, we will start with a graft of Kerecis and then eventually hopefully go to a skin graft. Until the cultures are negative, we would not proceed forward with that. She has been on IV antibiotics also that are sensitive to the bacteria sensitive to it. She is aware of the risks including further infection, bleeding, amputation, blood clots, and even and she signed the consent. SURGEON: Mellisa Grace DO DESCRIPTION OF PROCEDURE: The patient was taken to the operative suite and laid in the prone position. She was then sedated and an LMA was placed. The left lower extremity was then prepped and draped in sterile fashion. A time-out was performed. Everyone was in agreement with the correct side, site, patient, and procedure. We began by irrigating the wound and debriding it with a pickup and a knife and curette of any devitalized tissue, wound measured 16 x 6 cm. We then put in 10% povidone-iodine with 500 mL normal saline solution and let it sit for a minute and then irrigated that out with over a liter of normal saline. We then cultured the wound and then put in the wound VAC sponge and sealed it with the drapes. It was then held in suction and did not leak. She was then awakened and taken to recovery in stable condition. BLOOD LOSS: Minimal. COMPLICATIONS: None. NTS:[id number] Voice Confirmation ID: [id number] DOCUMENT ID: [id number] 11/13/2019 Edited per alex pérez. MELLISA GRACE DO at 1351 CC: [id number] DICTATION DATE: 11/05/19 1628 COMMERCIAL PARTS PROFESSIONAL: 11/06/19 0058 DIS IN 11/11/[id number] [place] [id number]
== END 2019-11-11 16:20 | disposition home health service (06) | DRG 264 ==
LOC: D.MS 12:03
PROVIDERS: Emergency Medicine; Family Medicine; Orthopaedic Surgery; ADMIT Orthopaedic Surgery; ATTEND Orthopaedic Surgery
PROC: 2W1MX6Z Compression of Left Lower Extremity using Pressure Dressing (ICD-10-PCS; principal; 2019-10-25 12:30)
PROC: 0JBP0ZZ Excision of Left Lower Leg Subcutaneous Tissue and Fascia, Open Approach (ICD-10-PCS; 2019-10-29 13:30)
PROC: 0JBP0ZZ Excision of Left Lower Leg Subcutaneous Tissue and Fascia, Open Approach (ICD-10-PCS; 2019-11-01)
PROC: 0JBP0ZZ Excision of Left Lower Leg Subcutaneous Tissue and Fascia, Open Approach (ICD-10-PCS; 2019-11-05)
PROC: 0JBP0ZZ Excision of Left Lower Leg Subcutaneous Tissue and Fascia, Open Approach (ICD-10-PCS; 2019-11-08)
DX: I96 Gangrene, not elsewhere classified (principal); Z68.41 Body mass index [BMI] 40.0-44.9, adult; N39.0 Urinary tract infection, site not specified; S81.812A Laceration without foreign body, left lower leg, initial encounter; B96.20 Unspecified Escherichia coli [E. coli] as the cause of diseases classified elsewhere; B96.89 Other specified bacterial agents as the cause of diseases classified elsewhere; W45.8XXA Other foreign body or object entering through skin, initial encounter; D64.9 Anemia, unspecified; I10 Essential (primary) hypertension; J45.909 Unspecified asthma, uncomplicated; G47.33 Obstructive sleep apnea (adult) (pediatric); M19.90 Unspecified osteoarthritis, unspecified site; R33.9 Retention of urine, unspecified; E66.01 Morbid (severe) obesity due to excess calories

== ENCOUNTER 2019-12-03 11:26 | Day surgery (SDC) | payer MEDICARE, OTHER ==
[~2019-12-03] VITALS: Ht 157.5 cm; Wt 102.1 kg
[~2019-12-03 11:26] MED LIST changes: +DIFLUCAN150 MG PO; +HYDROCODON-ACE1 EAC7 PO
[2019-12-03 12:08] LABS: HEMATOCRIT 38.2 % (36.0-48.0); HEMOGLOBIN 11.9 g/dL (12-16); MCHC 31.2 g/dL (31.0-37.0); MCV 83.6 fL (80.0-100.0); MEAN PLATELET VOLUME 9.2 fL (7.4-10.4); RBC 4.57 10x6/uL (4.00-5.40); RDW 17.2 % (11.5-14.5); WBC 9.9 10x3/uL (4.8-10.8)
[2019-12-03 12:10] LABS: ANION GAP 9.9 mmol/L (8-16); CALCIUM 9.9 mg/dL (8.5-10.1); CARBON DIOXIDE 30.9 mmol/L (21.0-32.0); CREATININE - SERUM 1.3 mg/dL (0.6-1.3); POTASSIUM - SERUM 3.8 mmol/L (3.5-5.1)
[2019-12-03 14:08] VITALS: Ht 157.5 cm; Wt 102.1 kg
--- NOTE | 2019-12-03 17:09 | NUR ---
1700-RECD TO ROOM, ALERT. IV PATENT TO LEFT ARM PICC LINE. RESP WITH EASE. DENIES PAIN. LEFT LEG DRESSING DRY AND INTACT WITH PROVENA WOUND VAC IN PLACE. TAKING LIQUIDS WITHOUT NAUSEA. AT BEDSIDE.
--- NOTE | 2019-12-04 08:42 | OP ---
PATIENT NAME: LAURIE CASTANEDA MEDICAL RECORD: [id number] :[birth year] LOCATION:D.OPS ADMISSION DATE: SURGEON: MELLISA GRACE DO DATE OF OPERATION: 12/03/2019 PROCEDURE PERFORMED: Left lower extremity irrigation and debridement with Kerecis and wound VAC application. PREOPERATIVE DIAGNOSIS: Left lower extremity open wound. POSTOPERATIVE DIAGNOSIS: Left lower extremity open wound. INDICATIONS: Ms. Castaneda is a 74-year-old female who 2 months ago had an injury while riding a horse where she degloved the posterior calf area. I saw her initially, irrigated out and closed it up and the wound dehisced and the skin necrosed. Then, we performed serial debridements as the wound was infected as well until the wound culture negative and then applied a large amount of Kerecis. The wound was a 10 x 16 x 4 at that point and then applied a wound VAC and I had seen her back in the last 2 weeks and the wound continues to improve. The curettes incorporates and has a very good granular base to apply 1 more time and see if we can get it to heal enough to put a skin graft on it. She is okay with that and is aware of the risks of continued pain, need for further surgery, infection, even amputation, blood clots, and , and signed the consent. SURGEON: Mellisa Grace DO DESCRIPTION OF PROCEDURE: The patient was taken to the operative suite, laid in the prone position, sedated and LMA was placed. She was given 2 grams Ancef preoperatively. The left lower extremity was then prepped and draped in sterile fashion. Timeout was performed. Everyone was in agreement with the correct site, side, patient, and procedure. I then began by using a curette and curetting around the bleeding edges and then took a #15 blade scalpel and debrided the edges to get bleeding along the edges, removed part of the medial side of the wound and used curettes to debride the wound further. At that point, the wound measured to be 8 x 10 cm. I applied Kerecis under the lateral flap and medial flap and then 1 more in the center and then 1 to cover the whole wound. Two of these were meshed and I sutured it in place with 4-0 Monocryl in a running fashion. I then applied a wound VAC and Axio Prevena Restor. VAC was also and held very good suction. She was then awakened and taken to recovery in stable condition. BLOOD LOSS: Minimal. COMPLICATIONS: None. TRANSINT:[id number] Voice Confirmation ID: [id number] DOCUMENT ID: [id number] OPERATIVE REPORT [id number] LAURIE CASTANEDA MICHAEL D, DO at 0842 CC: [id number] DICTATION DATE: 12/03/191699 ASSISTANT TO THE DEAN: 12/04/19 0146 [facility] 12/03/19 [facility] [address] [place] [address]
== END 2019-12-03 18:10 | disposition home or self-care (01) ==
LOC: D.OPS 11:26
PROVIDERS: Anesthesiology; ATTEND Orthopaedic Surgery
DX: S81.802D Unspecified open wound, left lower leg, subsequent encounter (principal); X58.XXXD Exposure to other specified factors, subsequent encounter; I10 Essential (primary) hypertension; J45.909 Unspecified asthma, uncomplicated; K21.9 Gastro-esophageal reflux disease without esophagitis